=== PATIENT | female | born 1975 | race Caucasian/White ===

== ENCOUNTER 2016-09-02 11:14 | Emergency (ER) | payer MEDICAID, OTHER ==
--- NOTE | 2016-09-02 12:09 | UC ---
UC General HPI - HPI Summary HPI Summary: complaint ofnausea, vomiting that started approx 1.5 days ago diarrhea that started 1.5 days ago able to drink small amounts of water every times she tries to eat she has diarrhea- 2-3 episodes today vomited 2x today denies blood in stool no menses for 3 months d/t depo denies dysuria, denies abdominal pain but sometimes has a cramping feeling denies fever, sore throat , cough, congestion hasn't taken any medication for symptoms - History of Current Complaint Chief Complaint: UCGI Stated Complaint: NAUSEA, VOMITING Time Seen by Provider: 09/02/16 12:02 Hx Obtained From: Patient - Allergy/Home Medications Allergies/Adverse Reactions: Allergies Allergy/AdvReac Type Severity Reaction Status Date / Time No Known Allergies Allergy Verified 09/02/16 11:39 PMH/Surg Hx/FS Hx/Imm Hx Previously Healthy: Yes Endocrine History Of: Denies: Diabetes, Thyroid Disease Cardiovascular History Of: Reports: Cardiac Disorders - heart murmur Denies: Hypertension, Pacemaker/ICD Respiratory History Of: Denies: COPD, Asthma GI/ History Of: Denies: Gastroesophageal Reflux, Ulcer, Renal Disease Neurological History Of: Denies: CVA, Dementia, Seizures Other History Of: Negative For: Anticoagulant Therapy - Surgical History Surgical History: Yes Surgery Procedure, Year, and Place: LEEP procedure - Family History Known Family History: Positive: None Negative: Cardiac Disease, Hypertension, Diabetes - Social History Occupation: Employed Full-time Lives: With Family Alcohol Use: Occasionally Substance Use Type: None Smoking Status (MU): Light Every Day Tobacco Smoker Type: Cigarettes Amount Used/How Often: 1/2 pack per day Household Exposure Type: Cigarettes Cessation Counseling: Patient Advised to Stop - Immunization History Most Recent Influenza Vaccination: Not UTD Review of Systems Constitutional: Negative Skin: Negative Eyes: Negative ENT: Negative Respiratory: Negative Cardiovascular: Negative Gastrointestinal: Vomiting, Diarrhea Genitourinary: Negative Motor: Negative Neurovascular: Negative Musculoskeletal: Negative Neurological: Negative Psychological: Negative All Other Systems Reviewed And Are Negative: Yes Physical Exam Triage Information Reviewed: Yes Appearance: No Pain Distress, Well-Nourished Vital Signs: Initial Vital Signs Temp 98.9 F 09/02/16 11:40 Pulse 82 09/02/16 11:40 Resp 16 09/02/16 11:40 BP 149/98 09/02/16 11:40 Pulse Ox 100 09/02/16 11:40 Vital Signs Reviewed: Yes Eyes: Positive: Conjunctiva Clear ENT: Positive: Pharynx normal, TMs normal Neck: Positive: No Lymphadenopathy Respiratory: Positive: Lungs clear, Normal breath sounds, No respiratory distress Cardiovascular: Positive: RRR, No Murmur, Pulses Normal Abdomen Description: Positive: Nontender, No Organomegaly, Soft. Negative: CVA Tenderness (R), CVA Tenderness (L), Distended, Guarding Bowel Sounds: Positive: Hyperactive Musculoskeletal: Positive: No Edema Neurological: Positive: Alert Psychological Exam: Normal Skin Exam: Normal Course/Dx - Course Course Of Treatment: exam completed. blood pressure is elevated- followup with PCP. abdomen non tender on exam - will treat with zofran and increase fluids. discussed if her symptoms do not improve or she develops abdominal pain to proceed to the emergency room - Differential Dx - Multi-Symptom Differential Diagnoses: Other - gastroenteritis, abdmonial pain Provider Diagnoses: gastroenteritis Discharge - Discharge Plan Condition: Stable Disposition: HOME Prescriptions: Ondansetron TAB* [Zofran 4 MG Tab*] 4 mg PO Q6H PRN #8 tab PRN Reason: Nausea Patient Education Materials: Gastroenteritis (ED), Hypertension (ED) Referrals: Liset Sanders MD [Primary Care Provider] - Additional Instructions: Your blood pressure is elevated today please make an appointment with your primary care provider to have further evaluation of your blood pressure Start zofran as directed Increase fluids and rest Take acetaminophen for fever or pain Please review your discharge instructions. If your symptoms do not improve please call your primary care provider or return to urgent care
[2016-09-02 12:27] VITALS: BP 140/97
== END 2016-09-02 12:29 | disposition home or self-care (01) ==
LOC: UCCORT 11:14
DX: K52.9 Noninfective gastroenteritis and colitis, unspecified (principal); F17.210 Nicotine dependence, cigarettes, uncomplicated
CPT/HCPCS: 99212; G0463

== ENCOUNTER 2016-09-08 11:40 | Emergency (ER) | payer MEDICAID ==
[2016-09-08 12:06] VITALS: BP 145/95
--- NOTE | 2016-09-08 12:53 | UC ---
Throat Pain/Nasal Omari HPI - HPI Summary HPI Summary: LEFT EAR PAIN, NASAL CONGESTION, SORE THROAT FOR FOUR DAYS. HEAVY SMOKER, 1PPD. WORKS IN [employer]. - History of Current Complaint Chief Complaint: UCEar Stated Complaint: EARS/SORE THROAT/DIZZY Time Seen by Provider: 09/08/16 12:15 Hx Obtained From: Patient Hx Last Menstrual Period: depo shot Onset/Duration: Gradual Onset, Lasting Weeks, Still Present Severity: Moderate Pain Intensity: 8 Pain Scale Used: 0-10 Numeric Associated Signs & Symptoms: Positive: Hoarseness, Sinus Discomfort, Nasal Discharge - Epiglottits Risk Factors Epiglottis Risk Factors: Negative - Allergies/Home Medications Allergies/Adverse Reactions: Allergies Allergy/AdvReac Type Severity Reaction Status Date / Time No Known Allergies Allergy Verified 09/08/16 12:06 PMH/Surg Hx/FS Hx/Imm Hx Previously Healthy: Yes Endocrine History Of: Denies: Diabetes, Thyroid Disease Cardiovascular History Of: Reports: Cardiac Disorders - heart murmur Denies: Hypertension, Pacemaker/ICD Respiratory History Of: Denies: COPD, Asthma GI/ History Of: Denies: Gastroesophageal Reflux, Ulcer, Renal Disease Neurological History Of: Denies: CVA, Dementia, Seizures Other History Of: Negative For: Anticoagulant Therapy - Surgical History Surgical History: Yes Surgery Procedure, Year, and Place: LEEP procedure - Family History Known Family History: Positive: None Negative: Cardiac Disease, Hypertension, Diabetes - Social History Occupation: Employed Full-time Lives: With Family Alcohol Use: Occasionally Substance Use Type: None Smoking Status (MU): Light Every Day Tobacco Smoker Type: Cigarettes Amount Used/How Often: 1/2 pack per day Household Exposure Type: Cigarettes Cessation Counseling: Patient Advised to Stop - Immunization History Most Recent Influenza Vaccination: Not UTD Most Recent Tetanus Shot: unknown Review of Systems Constitutional: Negative Skin: Negative Eyes: Negative ENT: Sore Throat, Ear Ache, Nasal Discharge Respiratory: Cough Cardiovascular: Negative Gastrointestinal: Negative Genitourinary: Negative Motor: Negative Neurovascular: Negative Musculoskeletal: Negative Neurological: Negative Psychological: Negative All Other Systems Reviewed And Are Negative: Yes Physical Exam Triage Information Reviewed: Yes Appearance: No Pain Distress, Well-Nourished, Ill-Appearing - MILD Vital Signs: Initial Vital Signs Temp 98.2 F 09/08/16 12:03 Pulse 83 03/18/17 12:03 Resp 14 09/08/16 12:03 BP 145/95 09/08/16 12:03 Pulse Ox 100 09/08/16 12:03 Vital Signs Reviewed: Yes Eye Exam: Normal Eyes: Positive: Conjunctiva Clear ENT: Positive: Hearing grossly normal, Pharyngeal erythema, Nasal congestion, TM bulging, TM dull Dental Exam: Normal Neck exam: Normal Neck: Positive: Supple, Nontender, No Lymphadenopathy Respiratory Exam: Normal Respiratory: Positive: Chest non-tender, Lungs clear, Normal breath sounds, No respiratory distress, No accessory muscle use Cardiovascular Exam: Normal Cardiovascular: Positive: RRR, No Murmur, Pulses Normal Abdominal Exam: Normal Abdomen Description: Positive: Nontender, No Organomegaly Musculoskeletal Exam: Normal Musculoskeletal: Positive: Strength Intact, ROM Intact Neurological Exam: Normal Psychological Exam: Normal Skin Exam: Normal Throat Pain/Nasal Course/Dx - Differential Dx/Diagnosis Differential Diagnosis/HQI/PQRI: Pharyngitis, Sinusitis, URI Provider Diagnoses: OTITIS MEDIA. SINUSITIS. TONSILLITIS. TOBACCO ABUSE Discharge - Discharge Plan Condition: Stable Disposition: HOME Prescriptions: Amoxicillin/Clavulanate TAB* [Augmentin TAB 875*] 875 mg PO BID #20 tab Patient Education Materials: How to Stop Smoking (ED), Otitis Media (ED), Tonsillitis (ED) Forms: *Work Release Referrals: Liset Sanders MD [Primary Care Provider] -
== END 2016-09-08 12:40 | disposition home or self-care (01) ==
LOC: UCCORT 11:40
DX: H66.92 Otitis media, unspecified, left ear (principal); J32.9 Chronic sinusitis, unspecified; J03.90 Acute tonsillitis, unspecified; R01.1 Cardiac murmur, unspecified; R03.0 Elevated blood-pressure reading, without diagnosis of hypertension; F17.210 Nicotine dependence, cigarettes, uncomplicated
CPT/HCPCS: 99212; G0463

== ENCOUNTER 2016-09-11 11:25 | Inpatient (IN) | payer MEDICAID ==
[2016-09-11] MEDS ORDERED: Ondansetron INJ* 2 MG/ML VIAL IV ONE (12:34)
[2016-09-11] MEDS: NS 0.9% 1000 ML* 2,000 ML IV ONE ×2 (13:21→14:10)
[2016-09-11 13:43] LABS: Hematocrit 46 % (35-47); Hemoglobin 15.5 g/dl (12.0-16.0); Mean Corpuscular HGB Conc 34 g/dl (31-36); Mean Corpuscular Hemoglobin 33 pg (27-31); Mean Corpuscular Volume 98 fL (80-97); Mean Platelet Volume 10 um3 (7.4-10.4); Red Blood Count 4.73 10^6/ul (4.0-5.4); Red Cell Distribution Width 13 % (10.5-15); White Blood Count 11.9 10^3/ul (3.5-10.8)
[2016-09-11 13:56] LABS: Urine Bacteria Absent (Absent); Urine Bilirubin Negative (Negative); Urine Glucose Negative (Negative); Urine Nitrite Negative (Negative)
[2016-09-11 14:05] LABS: ALT 22 U/L (7-52); AST 23 U/L (13-39); Albumin 4.8 g/dL (3.2-5.2); Alkaline Phosphatase 90 U/L (34-104); Anion Gap 6 mmol/L (2-11); BUN/Creatinine Ratio 11.7 (8-20); Blood Urea Nitrogen 9 mg/dL (6-24); CO2 Carbon Dioxide 26 mmol/L (22-32); Calcium 10.4 mg/dL (8.6-10.3); Chloride 98 mmol/L (101-111); Creatine Kinase 83 U/L (10-223); EGFR African American 106.8 (>60); Globulin 3.9 g/dL (2-4); Glucose 96 mg/dL (70-100); Lipase 12 U/L (11.0-82.0); Potassium 3.8 mmol/L (3.5-5.0); Sodium 130 mmol/L (133-145); Total Protein 8.7 g/dL (6.4-8.9)
[2016-09-11] MEDS ORDERED: Iohexol 300* (CONTRAST) 10 ML SDV IV ONE (15:19)
--- NOTE | 2016-09-11 15:51 | RAD ---
Indication: Diffuse abdominal pain, nausea and vomiting. Contrast: Administered 91.3 ml of Contrast Omnipaque 300 mg/ml CT of the abdomen and pelvis was performed after oral and IV contrast administration. Lung bases demonstrate no pleural fluid, nodules or masses. Heart is of normal size without evidence of pericardial effusion. Liver is normal in size. No focal lesions or intrahepatic ductal dilatation is noted. Gallbladder demonstrates no calcified gallstones. No pericholecystic fluid or wall thickening is identified. The spleen is normal in size. The common duct is not dilated. The pancreas demonstrates no mass or pancreatic duct dilatation. No adrenal masses are noted. The kidneys demonstrate symmetric nephrograms without evidence of hydronephrosis. Low density lesion upper pole left kidney does not measure fluid density. This was not present on prior noncontrast CT of 2007. Correlation with ultrasound and/or pre and postcontrast CT of the kidneys is suggested. No retroperitoneal lymphadenopathy is noted. Aorta and inferior vena cava are unremarkable. There is circumferential submucosal edema in the gastric antrum. Findings are suspicious for antral gastritis. Clinical correlation is suggested. CT of the pelvis demonstrates contrast in the colon. The appendix is visualized and is normal in caliber. The uterus and ovaries are unremarkable. No free fluid is identified in the pelvis. The bony structures are grossly unremarkable. IMPRESSION: THERE IS SUBMUCOSAL EDEMA IN THE GASTRIC ANTRUM WHICH IS CIRCUMFERENTIAL. CLINICAL CORRELATION IS SUGGESTED AND FURTHER EVALUATION MAY BE INDICATED. THERE IS A LOW-DENSITY 9 MM LESION ARISING FROM THE UPPER POLE OF THE LEFT KIDNEY. THIS DOES NOT MEASURE FLUID DENSITY AND WAS NOT PRESENT ON PRIOR CT DATED APRIL 02, 2008. FURTHER EVALUATION WITH ULTRASOUND OF THE KIDNEY AND OR PRE AND POSTCONTRAST CT OF THE KIDNEYS IS SUGGESTED.
[2016-09-11] MEDS ORDERED: Morphine INJ* 4 MG/ML 1 ML SYRINGE IV ONE (16:22)
[2016-09-11] MEDS ORDERED: Pantoprazole IV* 40 MG IV ONE (16:22)
--- NOTE | 2016-09-11 17:51 | ED ---
Ignacio Carrion Billy, scribed for Carlos Eduardo Moya MD on 09/11/16 at 1312 . Abdominal Pain/Female - HPI Summary HPI Summary: Patient is a 41 year-old female coming to [facility] presenting with constant diffuse abdominal pain since late last night. She reports pain severity 10/10. She also reports increased chills, nausea, vomiting, diarrhea, urinary frequency , and bilateral flank pain. Denies any fever. She has had some vaginal spotting but denies any vaginal discharge. Denies any risk of STD/STI. Patient took Depo- Provera in April 2016 and has had no periods since. She felt normal yesterday but progressively felt the onset of symptoms after dinner. Denies PSHx of abdominal surgery. - History of Current Complaint Chief Complaint: EDAbdPain Stated Complaint: ABD PAIN Time Seen by Provider: 09/11/16 13:03 Hx Obtained From: Patient Hx Last Menstrual Period: depo shot Onset/Duration: Gradual Onset, Lasting Hours, Still Present Timing: Constant Severity Initially: Moderate Severity Currently: Moderate Pain Intensity: 10 Pain Scale Used: 0-10 Numeric Location: Diffuse, Flank Radiates: No Aggravating Factor(s): Nothing Alleviating Factor(s): Nothing Associated Signs and Symptoms: Positive: Urinary Symptoms - frequency, Decreased Appetite, Vaginal Bleeding - spotting, Nausea, Vomiting, Diarrhea, Other: - chills. Negative: Fever, Vaginal Discharge Allergies/Adverse Reactions: Allergies Allergy/AdvReac Type Severity Reaction Status Date / Time No Known Allergies Allergy Verified 09/08/16 12:06 PMH/Surg Hx/FS Hx/Imm Hx Endocrine/Hematology History: Denies: Hx Anticoagulant Therapy, Hx Diabetes, Hx Thyroid Disease Cardiovascular History: Denies: Hx Hypertension, Hx Pacemaker/ICD Respiratory History: Denies: Hx Asthma, Hx Chronic Obstructive Pulmonary Disease (COPD) GI History: Denies: Hx Ulcer History: Denies: Hx Renal Disease Neurological History: Denies: Hx Dementia, Hx Seizures Psychiatric History: Denies: Hx Substance Abuse - Surgical History Surgery Procedure, Year, and Place: LEEP procedure Infectious Disease History: No Infectious Disease History: Denies: Hx Hepatitis, Hx Human Immunodeficiency Virus (HIV), Traveled Outside the [place] in Last 30 Days - Family History Known Family History: Negative: Cardiac Disease, Hypertension, Diabetes - Social History Alcohol Use: Occasionally Substance Use Type: Reports: None Smoking Status (MU): Light Every Day Tobacco Smoker Type: Cigarettes Amount Used/How Often: 1/2 pack per day Review of Systems Positive: Chills. Negative: Fever Positive: Abdominal Pain, Vomiting, Diarrhea, Nausea Positive: frequency, flank pain, other - vaginal spotting. Negative: discharge All Other Systems Reviewed And Are Negative: Yes Physical Exam Triage Information Reviewed: Yes Vital Signs On Initial Exam: Initial Vitals Temp Pulse Resp BP Pulse Ox 97.5 F 82 18 177/103 99 09/11/16 11:26 09/11/16 11:26 09/11/16 11:26 09/11/16 11:26 09/11/16 11:26 Vital Signs Reviewed: Yes Appearance: Positive: Well-Appearing, Pain Distress - mild Skin: Positive: Warm, Skin Color Reflects Adequate Perfusion, Dry Head/Face: Positive: Normal Head/Face Inspection Eyes: Positive: EOMI, REG ENT: Positive: Normal ENT inspection Neck: Positive: Supple, Nontender Respiratory/Lung Sounds: Positive: Clear to Auscultation, Breath Sounds Present Cardiovascular: Positive: RRR Abdomen Description: Positive: Soft, Other: - diffusely tender Bowel Sounds: Positive: Hypoactive Musculoskeletal: Positive: Normal, Strength/ROM Intact Neurological: Positive: Normal, Sensory/Motor Intact, Alert, Oriented to Person Place, Time Psychiatric: Positive: Affect/Mood Appropriate Diagnostics - Vital Signs Vital Signs Temp Pulse Resp BP Pulse Ox 09/11/16 11:26 97.5 F 82 18 177/103 99 - Laboratory Lab Results: Lab Results 09/11/16 09/11/16 09/11/16 Range/Units 13:20 13:20 13:20 WBC 11.9 H (3.5-10.8) 10^3/ul RBC 4.73 (4.0-5.4) 10^6/ul Hgb 15.5 (12.0-16.0) g/dl Hct 46 (35-47) % MCV 98 H (80-97) fL MCH 33 H (27-31) pg MCHC 34 (31-36) g/dl RDW 13 (10.5-15) % Plt Count 219 (150-450) 10^3/ul MPV 10 (7.4-10.4) um3 Neut % (Auto) 77.5 (38-83) % Lymph % (Auto) 14.5 L (25-47) % [place] % (Auto) 6.9 (1-9) % Eos % (Auto) 0.7 (0-6) % Baso % (Auto) 0.4 (0-2) % Absolute Neuts (auto) 9.2 H (1.5-7.7) 10^3/ul Absolute Lymphs (auto) 1.7 (1.0-4.8) 10^3/ul Absolute Monos (auto) 0.8 (0-0.8) 10^3/ul Absolute Eos (auto) 0.1 (0-0.6) 10^3/ul Absolute Basos (auto) 0 (0-0.2) 10^3/ul Absolute Nucleated RBC 0 10^3/ul Nucleated RBC % 0 INR (Anticoag Therapy) 0.87 L (0.89-1.11) APTT 25.3 L (26.0-36.3) seconds Sodium (133-145) mmol/L Potassium (3.5-5.0) mmol/L Chloride (101-111) mmol/L Carbon Dioxide (22-32) mmol/L Anion Gap (2-11) mmol/L BUN (6-24) mg/dL Creatinine (0.51-0.95) mg/dL Est GFR ( Amer) (>60) Est GFR (Non-Af Amer) (>60) BUN/Creatinine Ratio (8-20) Glucose (70-100) mg/dL Lactic Acid (0.5-2.0) mmol/L Calcium (8.6-10.3) mg/dL Total Bilirubin (0.2-1.0) mg/dL AST (13-39) U/L ALT (7-52) U/L Alkaline Phosphatase (34-104) U/L Total Creatine Kinase (10-223) U/L CK-MB (CK-2) (0.6-6.3) ng/mL Troponin I (<0.04) ng/mL C-Reactive Protein (< 5.00) mg/L Total Protein (6.4-8.9) g/dL Albumin (3.2-5.2) g/dL Globulin (2-4) g/dL Albumin/Globulin Ratio (1-3) Lipase (11.0-82.0) U/L Beta HCG, Quant mIU/mL Urine Color Yellow Urine Appearance Clear Urine pH 5.0 (5-9) Ur Specific [place] 1.017 (1.010-1.030) Urine Protein 1+(30 mg/dl) H (Negative) Urine Ketones Negative (Negative) Urine Blood 2+ H (Negative) Urine Nitrate Negative (Negative) Urine Bilirubin Negative (Negative) Urine Urobilinogen Negative (Negative) Ur Leukocyte Esterase Negative (Negative) Urine WBC (Auto) Trace(0-5/hpf) (Absent) Urine RBC (Auto) 1+(3-5/hpf) H (Absent) Ur Squamous Epith Cells Present H (Absent) Urine Bacteria Absent (Absent) Urine Glucose Negative (Negative) 09/11/16 09/11/16 Range/Units 13:20 13:20 WBC (3.5-10.8) 10^3/ul RBC (4.0-5.4) 10^6/ul Hgb (12.0-16.0) g/dl Hct (35-47) % MCV (80-97) fL MCH (27-31) pg MCHC (31-36) g/dl RDW (10.5-15) % Plt Count (150-450) 10^3/ul MPV (7.4-10.4) um3 Neut % (Auto) (38-83) % Lymph % (Auto) (25-47) % [place] % (Auto) (1-9) % Eos % (Auto) (0-6) % Baso % (Auto) (0-2) % Absolute Neuts (auto) (1.5-7.7) 10^3/ul Absolute Lymphs (auto) (1.0-4.8) 10^3/ul Absolute Monos (auto) (0-0.8) 10^3/ul Absolute Eos (auto) (0-0.6) 10^3/ul Absolute Basos (auto) (0-0.2) 10^3/ul Absolute Nucleated RBC 10^3/ul Nucleated RBC % INR (Anticoag Therapy) (0.89-1.11) APTT (26.0-36.3) seconds Sodium 130 L (133-145) mmol/L Potassium 3.8 (3.5-5.0) mmol/L Chloride 98 L (101-111) mmol/L Carbon Dioxide 26 (22-32) mmol/L Anion Gap 6 (2-11) mmol/L BUN 9 (6-24) mg/dL Creatinine 0.77 (0.51-0.95) mg/dL Est GFR ( Amer) 106.8 (>60) Est GFR (Non-Af Amer) 83.0 (>60) BUN/Creatinine Ratio 11.7 (8-20) Glucose 96 (70-100) mg/dL Lactic Acid 0.7 (0.5-2.0) mmol/L Calcium 10.4 H (8.6-10.3) mg/dL Total Bilirubin 1.00 (0.2-1.0) mg/dL AST 23 (13-39) U/L ALT 22 (7-52) U/L Alkaline Phosphatase 90 (34-104) U/L Total Creatine Kinase 83 (10-223) U/L CK-MB (CK-2) 0.8 (0.6-6.3) ng/mL Troponin I 0.00 (<0.04) ng/mL C-Reactive Protein 1.00 (< 5.00) mg/L Total Protein 8.7 (6.4-8.9) g/dL Albumin 4.8 (3.2-5.2) g/dL Globulin 3.9 (2-4) g/dL Albumin/Globulin Ratio 1.2 (1-3) Lipase 12 (11.0-82.0) U/L Beta HCG, Quant < 0.60 mIU/mL Urine Color Urine Appearance Urine pH (5-9) Ur Specific [place] (1.010-1.030) Urine Protein (Negative) Urine Ketones (Negative) Urine Blood (Negative) Urine Nitrate (Negative) Urine Bilirubin (Negative) Urine Urobilinogen (Negative) Ur Leukocyte Esterase (Negative) Urine WBC (Auto) (Absent) Urine RBC (Auto) (Absent) Ur Squamous Epith Cells (Absent) Urine Bacteria (Absent) Urine Glucose (Negative) Result Diagrams: 09/11/16 13:20 09/11/16 13:20 Lab Statement: Any lab studies that have been ordered have been reviewed, and results considered in the medical decision making process. - CT abd/pel w CT Interpretation Completed By: Radiologist - THERE IS SUBMUCOSAL EDEMA IN THE GASTRIC ANTRUM WHICH IS CIRCUMFERENTIAL. CLINICAL CORRELATION IS SUGGESTED AND FURTHER EVALUATION MAY BE INDICATED. THERE IS A LOW-DENSITY 9 MM LESION ARISING FROM THE UPPER POLE OF THE LEFT KIDNEY. THIS DOES NOT MEASURE FLUID DENSITY AND WAS NOT PRESENT ON PRIOR CT DATED APRIL 02, 2008. FURTHER EVALUATION WITH ULTRASOUND OF THE KIDNEY AND OR PRE AND POSTCONTRAST CT OF THE KIDNEYS IS SUGGESTED. Re-Evaluation - Re-Evaluation First Eval Re-Evaluation Time: 16:10 Change: Improved Comment: Labs and imaging reviewed. Abdominal Pain Fem Course/Dx - Course Course Of Treatment: DISCUSSED WITH DR MENDOZA GI. PATIENT'S PAIN CONTINUES. ADMIT HOSPITALIST STABLE. - Diagnoses Provider Diagnoses: Abdominal pain - Provider Notifications Discussed Care Of Patient With: Dr. Mendoza (GI) @ 1630: recommends follow up with endoscopy. Dr. Leon (hospitalist) @ 1740: accepts admission. Discharge - Discharge Plan Condition: Stable Disposition: ADMITTED TO [facility] Referrals: Liset Sanders MD [Primary Care Provider] - The documentation as recorded by the Ignacio griffith Billy accurately reflects the service I personally performed and the decisions made by me, Carlos Eduardo Moya MD.
[2016-09-11] MEDS: Pantoprazole IV* 80 MG in NS 0.9% 250 ML* 250 ML IVPB SCH (18:53)
[2016-09-11] MEDS ORDERED: Ondansetron INJ* 2 MG/ML VIAL IV PRN (18:54)
[2016-09-11] MEDS: Morphine INJ* 2 MG/ML 1 ML SYRINGE IV PRN ×2 (20:15→23:22)
[2016-09-11] MEDS: NS 0.9% 1000 ML* 1,000 ML IV SCH (20:15)
[2016-09-11 20:20] LABS: Hematocrit 39 % (35-47); Hemoglobin 13.1 g/dl (12.0-16.0)
--- NOTE | 2016-09-12 00:36 | HP ---
ADMISSION HISTORY AND PHYSICAL: DATE OF ADMISSION: 09/11/16 CHIEF COMPLAINT: Abdominal pain. HISTORY OF PRESENT ILLNESS: Ms. Julien is a 41-year-old woman with a little past medical history, who reports that she has had some epigastric discomfort, nausea, and diarrhea for approximately 2 weeks. The patient presented to the [facility] on 09/02/16 for these complaints and was told she had a viral gastroenteritis. She has had some postprandial epigastric pain, but mainly has had nausea and diarrhea off and on for the 2 weeks. The night prior to admission, she tried to eat scalloped potatoes and ham, had some nausea and anorexia. Overnight, she developed epigastric pain that radiated in a band left and right around to the spine and rated 10/10 pain. She has had vomiting intermittently over the past few weeks. Because of the above complaints, the patient came to the emergency department for evaluation today. The patient was also seen in the [facility] on 09/08/16 regarding sore throat and left ear pain. She is currently on Augmentin twice a day for these complaints. PAST MEDICAL HISTORY: Hypertension, untreated. PAST SURGICAL HISTORY: LEEP procedure due to abnormal Pap smear. MEDICATIONS: On admission: Amoxicillin/clavulanic acid 875 mg p.o. b.i.d. ALLERGIES: None. FAMILY HISTORY: Notable for brother with hypertension and anxiety and father who of cancer, unknown type. SOCIAL HISTORY: She works in a gas station. She is . She has 2 children. She smokes about 5 cigarettes per day, drinks alcohol 2 to 4 drinks per day after work. No recreational drugs. REVIEW OF SYSTEMS: The patient has had no fevers, but had some chills and anorexia. The patient denies any weight loss. The patient denies any chest pain or palpitations. The patient denies any cough, hemoptysis, or shortness of breath. She has a diarrhea. No blood in the stool. She does report that she has taken NSAIDs 400 mg of ibuprofen b.i.d. in the last 2 days as needed for her ear pain and throat pain. Remainder of her 14-point review of systems is negative other than mentioned in the HPI. PHYSICAL EXAMINATION GENERAL: She is a well-appearing middle-aged woman, in no acute distress. VITAL SIGNS: Temperature is 37.1, pulse 76, respirations 16, blood pressure is 146/67, and O2 sat is 99%. HEENT: Head is normocephalic and atraumatic. Sclerae anicteric. Pupils are equal, round, and reactive to light and accommodation. Oropharynx is moist. No lesions. NECK: No JVD. No carotid bruit. No thyromegaly. LUNGS: Clear to auscultation and percussion bilaterally. HEART: Regular rate and rhythm without murmurs or gallops. ABDOMEN: Soft, tender in the epigastric and right upper quadrant region. There is some guarding in the epigastric area. No masses. No hepatosplenomegaly. EXTREMITIES: No peripheral edema. Dorsalis pedis pulses 2+ bilaterally. SKIN: Notable for erythematous macular and generalized blanching rash on the face consistent with rosacea. NEUROLOGIC: Cranial nerves II through XII are intact. Motor strength is 5/5 throughout. Deep tendon reflexes are symmetric. DIAGNOSTIC STUDIES/LAB DATA: Sodium 130, potassium 3.8, chloride 98, bicarb 26 , BUN 9, creatinine 0.77, glucose 96, and calcium 10.4. Albumin 4.6, AST 23, ALT 22, and bilirubin 1.0. Troponin 0.00. Lipase is 12. HCG is less than 0.6. Lactic acid 0.7. White count 11.9, hemoglobin 15.5, hematocrit 46%, and platelets 219. Pro-time 0.[address] of the abdomen and pelvis shows a generalized submucosal edema in the gastric body, no perforation. There is no gallbladder thickening or gallstone. She does have a 0.9 cm left kidney lesion that likely needs followup. ASSESSMENT AND PLAN: A 41-year-old woman presenting with epigastric pain. Differential would include gastritis, peptic ulcer, and gallbladder colic. The patient will be admitted to observation. We will treat her gastritis and ulcer with Protonix drip and follow serial hemoglobin and hematocrit to ensure that she is not having a GI bleed. The patient will be seen by Gastroenterology tomorrow for consultation. I discussed the case with Dr. Seymour and he will make sure someone sees her tomorrow for possible endoscopy. For her left kidney lesion, she should have an outpatient repeat CT in 3 to 6 months to follow up with lesion in a smoker. For fluid and electrolytes, she will be n.p.o. except some clear liquids and risk of dehydration given her vomiting, so she will have normal saline intravenously while she is awaiting procedure tomorrow. For tobacco use, I discussed cessation. For DVT prophylaxis, she can have early ambulation. Code status is full. Health care proxy is her son. CC: Dr. Liset Sanders in [place] * [id number]/CPS #: [id number] MTDD
[2016-09-12] MEDS: NS 0.9% 1000 ML* 1,000 ML IV SCH ×3 (02:51→18:56)
[2016-09-12] MEDS: Morphine INJ* 2 MG/ML 1 ML SYRINGE IV PRN ×4 (03:44→20:55)
[2016-09-12] MEDS: Pantoprazole IV* 80 MG in NS 0.9% 250 ML* 250 ML IVPB SCH ×2 (05:19→14:46)
[2016-09-12 07:25] LABS: Hematocrit 36 % (35-47); Hemoglobin 11.8 g/dl (12.0-16.0); Mean Corpuscular HGB Conc 32 g/dl (31-36); Mean Corpuscular Hemoglobin 33 pg (27-31); Mean Corpuscular Volume 102 fL (80-97); Mean Platelet Volume 10 um3 (7.4-10.4); Red Blood Count 3.58 10^6/ul (4.0-5.4); Red Cell Distribution Width 13 % (10.5-15); White Blood Count 7.6 10^3/ul (3.5-10.8)
[2016-09-12 07:32] LABS: BUN/Creatinine Ratio 5.4 (8-20); Calcium 8.4 mg/dL (8.6-10.3); EGFR African American 111.8 (>60); EGFR Non-African American 86.9 (>60); Potassium 3.7 mmol/L (3.5-5.0)
--- NOTE | 2016-09-12 09:54 | RAD ---
HISTORY: Gastric ulcer COMPARISONS: CT dated September 11, 2016, ultrasound dated May 27, 2012 TECHNIQUE: Multiple transverse and longitudinal ultrasound images were obtained of the right upper quadrant of the abdomen using grayscale and color Doppler imaging. FINDINGS: LIVER: The liver is normal in shape, size, contour, and echogenicity. There are no focal parenchymal masses. There is normal hepatopedal flow of the portal vein on Doppler imaging. BILIARY TREE: There is no intrahepatic or extrahepatic biliary dilatation. The common duct measures 0.4 cm. GALLBLADDER: The gallbladder is well-visualized. There is no cholelithiasis, gallbladder wall thickening, pericholecystic fluid, or sonographic Reed sign. PANCREAS: The head of the pancreas is unremarkable. The tail of the pancreas is not well visualized secondary to overlying bowel gas. RIGHT KIDNEY: The right kidney is normal in shape, size, contour, and echogenicity. There is no hydronephrosis or nephrolithiasis. The right kidney measures 10.4 x 3.8 x 4.5 cm. AORTA AND IVC: The aorta and IVC are unremarkable. FLUID: There are no pleural effusions. There is no free fluid within the hepatorenal recess. OTHER FINDINGS: None. IMPRESSION: NO ACUTE SONOGRAPHIC PATHOLOGY OF THE VISUALIZED PORTION OF THE ABDOMEN
--- NOTE | 2016-09-12 11:55 | CONS ---
CONSULTATION REPORT: DATE OF CONSULT: 09/12/16 REASON FOR CONSULTATION: Epigastric pain. HISTORY OF PRESENT ILLNESS: Ms. Julien is a healthy 41-year-old woman who presents with about a 2-day history of intense gastric pain with radiation into the back associated with a background history of diarrhea and anorexia and nausea. The patient states that approximately 2 weeks ago, she developed nausea , anorexia, and diarrhea. She went to Urgent Care on September 02 and was thought to have a viral gastroenteritis. Due to her nausea, she was prescribed Zofran but due to insurance issues, that was not filled. Her symptoms stayed about the same over that period of time. However, over the weekend, she developed left ear pain and went back to Urgent Care and was diagnosed with upper respiratory infection and prescribed Augmentin. About 2 days ago, she developed very intense epigastric pain which is constant. She has not been able to eat other than having liquids. There has been a sense of nausea. She has had no fevers or chills. She does note that she took 4 ibuprofen for her ear pain prior to the onset of these symptoms. She presented to the emergency room with laboratory data demonstrating a normal lipase, liver panel, and white count. She had a CT scan of the abdomen which did show some submucosal edema of the gastric antrum suggestive of gastritis, but no other lesion. She was held overnight in the hospital, given morphine, and clear liquids and IV Protonix. She continues to have these symptoms. Prior to this acute onset, she has had no digestive history. PAST MEDICAL HISTORY: Hypertension, but has not been treated. SURGICAL HISTORY: LEEP procedure in the past. FAMILY HISTORY: Negative for GI disease. REVIEW OF SYSTEMS: She has had no GI bleeding, odynophagia. She has no background history of heartburn or weight loss. She denies any jaundice or history of liver disease. PHYSICAL EXAMINATION: She is a young woman describing pain, but in no acute distress. She is anicteric. Temperature is 98 degrees, blood pressure is 135/ 78, heart rate is 67 and regular. Lungs are clear. Cardiac exam reveals a regular rhythm without murmur. Abdomen is soft. There is perhaps some mild tenderness in the epigastrium and right upper quadrant without organomegaly. Bowel sounds are hypoactive but present. DIAGNOSTIC STUDIES/LAB DATA: White count of 7.6, hemoglobin of 11.8, normal liver panel, lipase of 12. IMPRESSION: A 41-year-old woman presenting with 2 days of epigastric pain with some radiation in the back, with a prodrome that goes on for 2 weeks with diarrhea and anorexia. CT scan shows the question of gastritis, and for that reason, an upper endoscopy will be pursued. I am also willing to order a gallbladder ultrasound. Further recommendations will be based upon the findings of those studies. This was explained to the patient. [id number]/[facility] #: [id number] [facility]
[2016-09-12] MEDS ORDERED: fentaNYL* 50 MCG/ML 2 ML VIAL (100 MCG VIAL) ONE (15:57)
[2016-09-12] MEDS ORDERED: Midazolam* 1 MG/ML 10 ML VIAL (10 MG) ONE (15:58)
--- NOTE | 2016-09-12 17:25 | PN ---
Subjective Date of Service: 09/12/16 Interval History: Patient seen and examined at bedside. She is resting in bed and reports feeling better than the past 2 weeks. She reports "lots of gas." She still has abdominal pain that is helped by the pain medication. No nausea or diarrhea at this time. Denies fever/chills, CP, SOB. Plan for endoscopy today. Family History: Unchanged from Admission Social History: Unchanged from Admission Past Medical History: Unchanged from Admission Objective Active Medications: Sodium Chloride (Ns 0.9% 1000 Ml*) 1,000 mls @ 150 mls/hr IV PER RATE [facility] Last Admin: 09/12/16 09:41 Dose: 150 mls/hr Pantoprazole Sodium 80 mg/ (Sodium Chloride) 250 mls @ 25 mls/hr IVPB Q10H [facility] Last Admin: 09/12/16 14:46 Dose: 25 mls/hr Morphine Sulfate (Morphine Inj (Syringe)*) 4 mg IV Q3H PRN PRN Reason: PAIN Last Admin: 09/12/16 10:53 Dose: 4 mg Ondansetron HCl (Zofran Inj*) 4 mg IV Q6H PRN PRN Reason: NAUSEA Vital Signs 09/11/16 09/11/16 09/11/16 18:21 19:15 19:22 Temperature 98.7 F 97.8 F 97.8 F Pulse Rate 76 70 70 Respiratory 16 16 16 Rate Blood Pressure 146/67 138/86 138/86 (mmHg) O2 Sat by Pulse 99 99 99 Oximetry 09/11/16 09/11/16 09/11/16 19:33 20:15 20:35 Temperature Pulse Rate Respiratory 17 17 16 Rate Blood Pressure (mmHg) O2 Sat by Pulse Oximetry 09/11/16 09/11/16 09/11/16 21:15 23:22 23:43 Temperature 97.8 F Pulse Rate 80 Respiratory 16 16 16 Rate Blood Pressure 142/79 (mmHg) O2 Sat by Pulse 98 Oximetry 09/12/16 09/12/16 09/12/16 00:22 03:44 04:44 Temperature 97.7 F Pulse Rate 73 Respiratory 16 16 16 Rate Blood Pressure 147/85 (mmHg) O2 Sat by Pulse 99 Oximetry 09/12/16 09/12/16 09/12/16 07:23 07:50 08:00 Temperature 98.0 F Pulse Rate 67 Respiratory 16 18 16 Rate Blood Pressure 135/78 (mmHg) O2 Sat by Pulse 97 Oximetry 09/12/16 09/12/16 09/12/16 08:50 10:53 11:31 Temperature 97.7 F Pulse Rate 67 Respiratory 18 18 16 Rate Blood Pressure 141/75 (mmHg) O2 Sat by Pulse 97 Oximetry 09/12/16 09/12/16 09/12/16 11:53 17:11 17:17 Temperature 97.8 F 97.8 F Pulse Rate 69 69 Respiratory 18 14 14 Rate Blood Pressure 136/85 136/85 (mmHg) O2 Sat by Pulse 100 98 Oximetry Appearance: Female patient, lying in bed, in NAD Eyes: PERRLA Ears/Nose/Mouth/Throat: Clear Oropharnyx, Mucous Membranes Moist Neck: NL Appearance and Movements; NL JVP Respiratory: Symmetrical Chest Expansion and Respiratory Effort, Clear to Auscultation Cardiovascular: NL Sounds; No Murmurs; No JVD, RRR Abdominal: - - BS x 4, positive flatus, tenderness to epigastrum and RUQ and mid abdomen Extremities: No Edema Skin: No Rash or Ulcers Neurological: Alert and Oriented x 3 Lines/Tubes/Other Access: Clean, Dry and Intact Peripheral IV Result Diagrams: 09/12/16 06:52 09/12/16 06:52 Additional Lab and Data: Lab Results 09/11/16 09/11/16 09/11/16 Range/Units 13:20 13:20 13:20 WBC 11.9 H (3.5-10.8) 10^3/ul RBC 4.73 (4.0-5.4) 10^6/ul Hgb 15.5 (12.0-16.0) g/dl Hct 46 (35-47) % MCV 98 H (80-97) fL MCH 33 H (27-31) pg MCHC 34 (31-36) g/dl RDW 13 (10.5-15) % Plt Count 219 (150-450) 10^3/ul MPV 10 (7.4-10.4) um3 Neut % (Auto) 77.5 (38-83) % Lymph % (Auto) 14.5 L (25-47) % [place] % (Auto) 6.9 (1-9) % Eos % (Auto) 0.7 (0-6) % Baso % (Auto) 0.4 (0-2) % Absolute Neuts (auto) 9.2 H (1.5-7.7) 10^3/ul Absolute Lymphs (auto) 1.7 (1.0-4.8) 10^3/ul Absolute Monos (auto) 0.8 (0-0.8) 10^3/ul Absolute Eos (auto) 0.1 (0-0.6) 10^3/ul Absolute Basos (auto) 0 (0-0.2) 10^3/ul Absolute Nucleated RBC 0 10^3/ul Nucleated RBC % 0 INR (Anticoag Therapy) 0.87 L (0.89-1.11) APTT 25.3 L (26.0-36.3) seconds Sodium (133-145) mmol/L Potassium (3.5-5.0) mmol/L Chloride (101-111) mmol/L Carbon Dioxide (22-32) mmol/L Anion Gap (2-11) mmol/L BUN (6-24) mg/dL Creatinine (0.51-0.95) mg/dL Est GFR ( Amer) (>60) Est GFR (Non-Af Amer) (>60) BUN/Creatinine Ratio (8-20) Glucose (70-100) mg/dL Lactic Acid (0.5-2.0) mmol/L Calcium (8.6-10.3) mg/dL Total Bilirubin (0.2-1.0) mg/dL AST (13-39) U/L ALT (7-52) U/L Alkaline Phosphatase (34-104) U/L Total Creatine Kinase (10-223) U/L CK-MB (CK-2) (0.6-6.3) ng/mL Troponin I (<0.04) ng/mL C-Reactive Protein (< 5.00) mg/L Total Protein (6.4-8.9) g/dL Albumin (3.2-5.2) g/dL Globulin (2-4) g/dL Albumin/Globulin Ratio (1-3) Lipase (11.0-82.0) U/L Beta HCG, Quant mIU/mL Urine Color Yellow Urine Appearance Clear Urine pH 5.0 (5-9) Ur Specific [place] 1.017 (1.010-1.030) Urine Protein 1+(30 mg/dl) H (Negative) Urine Ketones Negative (Negative) Urine Blood 2+ H (Negative) Urine Nitrate Negative (Negative) Urine Bilirubin Negative (Negative) Urine Urobilinogen Negative (Negative) Ur Leukocyte Esterase Negative (Negative) Urine WBC (Auto) Trace(0-5/hpf) (Absent) Urine RBC (Auto) 1+(3-5/hpf) H (Absent) Ur Squamous Epith Cells Present H (Absent) Urine Bacteria Absent (Absent) Urine Glucose Negative (Negative) 09/11/16 09/11/16 Range/Units 13:20 13:20 WBC (3.5-10.8) 10^3/ul RBC (4.0-5.4) 10^6/ul Hgb (12.0-16.0) g/dl Hct (35-47) % MCV (80-97) fL MCH (27-31) pg MCHC (31-36) g/dl RDW (10.5-15) % Plt Count (150-450) 10^3/ul MPV (7.4-10.4) um3 Neut % (Auto) (38-83) % Lymph % (Auto) (25-47) % [place] % (Auto) (1-9) % Eos % (Auto) (0-6) % Baso % (Auto) (0-2) % Absolute Neuts (auto) (1.5-7.7) 10^3/ul Absolute Lymphs (auto) (1.0-4.8) 10^3/ul Absolute Monos (auto) (0-0.8) 10^3/ul Absolute Eos (auto) (0-0.6) 10^3/ul Absolute Basos (auto) (0-0.2) 10^3/ul Absolute Nucleated RBC 10^3/ul Nucleated RBC % INR (Anticoag Therapy) (0.89-1.11) APTT (26.0-36.3) seconds Sodium 130 L (133-145) mmol/L Potassium 3.8 (3.5-5.0) mmol/L Chloride 98 L (101-111) mmol/L Carbon Dioxide 26 (22-32) mmol/L Anion Gap 6 (2-11) mmol/L BUN 9 (6-24) mg/dL Creatinine 0.77 (0.51-0.95) mg/dL Est GFR ( Amer) 106.8 (>60) Est GFR (Non-Af Amer) 83.0 (>60) BUN/Creatinine Ratio 11.7 (8-20) Glucose 96 (70-100) mg/dL Lactic Acid 0.7 (0.5-2.0) mmol/L Calcium 10.4 H (8.6-10.3) mg/dL Total Bilirubin 1.00 (0.2-1.0) mg/dL AST 23 (13-39) U/L ALT 22 (7-52) U/L Alkaline Phosphatase 90 (34-104) U/L Total Creatine Kinase 83 (10-223) U/L CK-MB (CK-2) 0.8 (0.6-6.3) ng/mL Troponin I 0.00 (<0.04) ng/mL C-Reactive Protein 1.00 (< 5.00) mg/L Total Protein 8.7 (6.4-8.9) g/dL Albumin 4.8 (3.2-5.2) g/dL Globulin 3.9 (2-4) g/dL Albumin/Globulin Ratio 1.2 (1-3) Lipase 12 (11.0-82.0) U/L Beta HCG, Quant < 0.60 mIU/mL Urine Color Urine Appearance Urine pH (5-9) Ur Specific [place] (1.010-1.030) Urine Protein (Negative) Urine Ketones (Negative) Urine Blood (Negative) Urine Nitrate (Negative) Urine Bilirubin (Negative) Urine Urobilinogen (Negative) Ur Leukocyte Esterase (Negative) Urine WBC (Auto) (Absent) Urine RBC (Auto) (Absent) Ur Squamous Epith Cells (Absent) Urine Bacteria (Absent) Urine Glucose (Negative) Assess/Plan/Problems-Billing Assessment: Ms. Julien is a 41 yo female with a PMH of untreated HTN who presented on with concern for abdominal pain with n/v/d. - Patient Problems (1) Abdominal pain Code(s): R10.9 - UNSPECIFIED ABDOMINAL PAIN Comment: Appreciate GI consult Gallbladder US unremarkable. CT abd/pelvis with generalized submucosal edema in gastric body, suggestive of gastritis, PUD, or gallbladder colic Endoscopy pending. Continue pain management, pantoprazole gtt. (2) Kidney lesion Code(s): N28.9 - DISORDER OF KIDNEY AND URETER, UNSPECIFIED Comment: 0.9 cm left kidney lesion noted on CT. Recommend outpatient f/u CT in 3-6 months. (3) HTN (hypertension) Code(s): I10 - ESSENTIAL (PRIMARY) HYPERTENSION Comment: SBP 130s-140s. Continue to monitor. (4) Tobacco abuse Code(s): Z72.0 - TOBACCO USE Comment: Smoking cessation education provided. Nicotine replacement therapy PRN. (5) DVT prophylaxis Code(s): QAS0359 - Comment: Early ambulation Status and Disposition: OBV admit. D/c to home when medically stable.
[2016-09-12] MEDS ORDERED: Nicotine Inhaler* 10 MG AMP INH PRN (17:28)
[2016-09-12] MEDS ORDERED: Nicotine GUM* 2 MG PO PRN (17:28)
[2016-09-13] MEDS: Morphine INJ* 2 MG/ML 1 ML SYRINGE IV PRN ×7 (00:35→22:20)
[2016-09-13] MEDS: NS 0.9% 1000 ML* 1,000 ML IV SCH ×3 (01:13→21:07)
[2016-09-13] MEDS: Pantoprazole IV* 80 MG in NS 0.9% 250 ML* 250 ML IVPB SCH ×3 (03:32→13:57)
--- NOTE | 2016-09-13 05:39 | PRO ---
DATE OF PROCEDURE: 09/12/16 - ROOM #[id number] PROCEDURE: Gastroscopy with gastric biopsy and CLOtest biopsy. MEDICINES: Versed 10 mg IV, Fentanyl 100 mcg IV. NARRATIVE: This is a 41-year-old woman currently hospitalized with epigastric pain. A recent CAT scan of the abdomen suggested stomach inflammation and for that reason, an upper endoscopy is being carried out. DESCRIPTION OF PROCEDURE: After the procedure was discussed with the patient, risks and benefits were outlined, written consent was obtained. The patient was placed in the left lateral decubitus position and conscious sedation was administered. A video diagnostic gastroscope was inserted orally and passed very carefully into the esophagus. The esophagus, stomach, and duodenum to the second to third portion were visualized. The patient did have some restlessness during the procedure due to the conscious sedation but tolerated otherwise well and there were no immediate complications. FINDINGS: The esophagus was normal. There was no evidence of erosive change. The stomach was entered. The cardia, fundus, and body of the stomach were unremarkable; however, the antrum was notable for several scattered superficial ulcers and some nodular inflammatory change seen consistent with antral gastritis and scattered ulcers. No ulcer was bigger than 5 or 6 mm. There were no stigmata of bleeding. Biopsies were obtained from the ulcer as well; the CLOtest biopsy for H. pylori assessment. The pylorus was normal and patent. The duodenal bulb was normal and the second to third portion of the duodenum was normal with a normal folding pattern. CONCLUSION: Gastritis with scattered gastric ulcers as described above likely accounting for the patient's symptoms. Biopsies obtained as described above. RECOMMENDATION: I certainly would continue PPI therapy as being done. Biopsies will be followed up on. CC: Dr. Liset Sanders * [id number]/[facility] #: [id number] [facility]OSPITALOscar
--- NOTE | 2016-09-13 18:13 | PN ---
Subjective Date of Service: 09/13/16 Interval History: Patient seen and examined at bedside. Denies fever, chills, shortness of breath , chest discomfort, N/V/D. Pt continues to have upper abdominal pain that radiates to her back. Family History: Unchanged from Admission Social History: Unchanged from Admission Past Medical History: Unchanged from Admission Objective Active Medications: Sodium Chloride (Ns 0.9% 1000 Ml*) 1,000 mls @ 150 mls/hr IV PER RATE [facility] Pantoprazole Sodium 80 mg/ (Sodium Chloride) 250 mls @ 25 mls/hr IVPB Q10H [facility] Morphine Sulfate (Morphine Inj (Syringe)*) 4 mg IV Q3H PRN Reason: PAIN Nicotine (Nicotine Inhaler*) 10 mg INH Q2H PRN Reason: CRAVING Nicotine Polacrilex (Nicotine Gum*) 2 mg PO Q2H PRN Reason: CRAVING Ondansetron HCl (Zofran Inj*) 4 mg IV Q6H PRN Reason: NAUSEA Vital Signs 09/12/16 09/12/16 09/12/16 19:19 20:00 20:55 Temperature 97.7 F Pulse Rate 85 Respiratory 16 16 16 Rate Blood Pressure 142/74 (mmHg) O2 Sat by Pulse 100 Oximetry 09/12/16 09/12/16 09/13/16 21:55 23:35 00:35 Temperature 97.6 F Pulse Rate 65 Respiratory 18 17 20 Rate Blood Pressure 130/70 (mmHg) O2 Sat by Pulse 98 Oximetry 09/13/16 09/13/16 09/13/16 01:35 03:18 03:36 Temperature 98.0 F Pulse Rate 65 Respiratory 16 14 18 Rate Blood Pressure 120/77 (mmHg) O2 Sat by Pulse 97 Oximetry 09/13/16 09/13/16 09/13/16 04:36 07:11 07:20 Temperature 97.9 F Pulse Rate 72 Respiratory 18 16 16 Rate Blood Pressure 153/85 (mmHg) O2 Sat by Pulse 96 Oximetry 09/13/16 09/13/16 09/13/16 08:20 11:10 11:44 Temperature 97.7 F Pulse Rate 68 Respiratory 15 16 16 Rate Blood Pressure 136/78 (mmHg) O2 Sat by Pulse 97 Oximetry 09/13/16 09/13/16 16:01 16:05 Temperature 98.0 F Pulse Rate 67 Respiratory 20 16 Rate Blood Pressure 152/88 (mmHg) O2 Sat by Pulse 98 Oximetry Oxygen Devices in Use Now: None Appearance: NAD, laying in bed Eyes: No Scleral Icterus, PERRLA Ears/Nose/Mouth/Throat: NL Teeth, Lips, Gums, Mucous Membranes Moist Neck: NL Appearance and Movements; NL JVP, Trachea Midline Respiratory: Symmetrical Chest Expansion and Respiratory Effort, Clear to Auscultation Cardiovascular: NL Sounds; No Murmurs; No JVD, RRR Abdominal: - - Bowel sounds present, tenderness to upper abdomen, no guarding or rebound Extremities: No Edema Skin: No Rash or Ulcers Neurological: Alert and Oriented x 3, NL Muscle Strength and Tone Lines/Tubes/Other Access: Clean, Dry and Intact Peripheral IV - x 2, site benign Nutrition: Taking PO's Result Diagrams: 09/12/16 06:52 09/12/16 06:52 Additional Lab and Data: Microbiology and Other Data: Microbiology 09/12/16 16:15 CLOtest - Final Gastric Antrum Assess/Plan/Problems-Billing Assessment: Ms. Julien is a 41 yo female with a PMH of untreated HTN who presented on with concern for abdominal pain with n/v/d. - Patient Problems (1) Abdominal pain Code(s): R10.9 - UNSPECIFIED ABDOMINAL PAIN SNOMED Code(s): 26164646 Comment: - Appreciate GI consult - Gallbladder US unremarkable. - CT abd/pelvis with generalized submucosal edema in gastric body, suggestive of gastritis, PUD, or gallbladder colic - Upper Endoscopy showing gastritis and gastric ulcers. Clotest negative - Continue pain management, pantoprazole gtt. (2) Kidney lesion Code(s): N28.9 - DISORDER OF KIDNEY AND URETER, UNSPECIFIED SNOMED Code(s): 87493118 Comment: - 0.9 cm left kidney lesion noted on CT. - Recommend outpatient f/u CT in 3-6 months. (3) HTN (hypertension) Code(s): I10 - ESSENTIAL (PRIMARY) HYPERTENSION SNOMED Code(s): 10805440 Comment: - SBP 130s-140s. Continue to monitor. (4) Tobacco abuse Code(s): Z72.0 - TOBACCO USE SNOMED Code(s): 668893469 Comment: - Smoking cessation education provided. - Nicotine replacement therapy PRN. (5) DVT prophylaxis Code(s): ULE1023 - SNOMED Code(s): 852820563 Comment: - Early ambulation (6) Full code status Code(s): Z78.9 - OTHER SPECIFIED HEALTH STATUS SNOMED Code(s): 273865397 Status and Disposition: OBV admit. D/c to home when medically stable.
[2016-09-14] MEDS: Pantoprazole IV* 80 MG in NS 0.9% 250 ML* 250 ML IVPB SCH ×3 (01:32→05:17)
[2016-09-14] MEDS: Morphine INJ* 2 MG/ML 1 ML SYRINGE IV PRN (02:51)
[2016-09-14] MEDS: NS 0.9% 1000 ML* 1,000 ML IV SCH (07:08)
--- NOTE | 2016-09-14 12:16 | PN ---
Subjective Date of Service: 09/14/16 Interval History: Patient seen and examined at bedside. Pt states that her abdominal pain has improved and she has not needed pain medication since during the night. Denies fever, chills, shortness of breath, chest discomfort, N/V/D. Pt is tolerating a full liquid diet well. Pt reports some dizziness overnight with ambulation and this has resolved since stopping the morphine. Family History: Unchanged from Admission Social History: Unchanged from Admission Past Medical History: Unchanged from Admission Objective Active Medications: Morphine Sulfate (Morphine Inj (Syringe)*) 4 mg IV Q4H PRN Reason: PAIN Nicotine (Nicotine Inhaler*) 10 mg INH Q2H PRN Reason: CRAVING Nicotine Polacrilex (Nicotine Gum*) 2 mg PO Q2H PRN Reason: CRAVING Omeprazole (Prilosec Cap*) 20 mg PO BID ALEJANDRO Ondansetron HCl (Zofran Inj*) 4 mg IV Q6H PRN Reason: NAUSEA Vital Signs 09/13/16 09/13/16 09/13/16 14:18 15:18 16:01 Temperature 98.0 F Pulse Rate 67 Respiratory 16 16 20 Rate Blood Pressure 152/88 (mmHg) O2 Sat by Pulse 98 Oximetry 09/13/16 09/13/16 09/13/16 19:40 20:00 22:20 Temperature 97.8 F Pulse Rate 96 Respiratory 16 16 18 Rate Blood Pressure 135/77 (mmHg) O2 Sat by Pulse 99 Oximetry 09/13/16 09/13/16 09/14/16 23:20 23:46 02:51 Temperature 97.9 F Pulse Rate 81 Respiratory 18 16 16 Rate Blood Pressure 141/53 (mmHg) O2 Sat by Pulse 98 Oximetry 09/14/16 09/14/16 09/14/16 03:24 03:51 07:36 Temperature 97.7 F 98.0 F Pulse Rate 63 63 Respiratory 16 18 18 Rate Blood Pressure 129/76 176/93 (mmHg) O2 Sat by Pulse 98 99 Oximetry 09/14/16 09/14/16 09/14/16 08:00 08:13 11:38 Temperature 98.0 F Pulse Rate 71 Respiratory 16 18 Rate Blood Pressure 156/89 150/80 (mmHg) O2 Sat by Pulse 100 Oximetry Oxygen Devices in Use Now: None Appearance: NAD, sitting up in bed Eyes: No Scleral Icterus, PERRLA Ears/Nose/Mouth/Throat: NL Teeth, Lips, Gums, Mucous Membranes Moist Neck: NL Appearance and Movements; NL JVP, Trachea Midline Respiratory: Symmetrical Chest Expansion and Respiratory Effort, Clear to Auscultation Cardiovascular: NL Sounds; No Murmurs; No JVD, RRR Abdominal: - - Some tenderness with palpation to the upper abdomen and epigastric area, no guarding or rebound pain. Bowel sounds present Extremities: No Edema Skin: No Rash or Ulcers Neurological: Alert and Oriented x 3, NL Muscle Strength and Tone Lines/Tubes/Other Access: Clean, Dry and Intact Peripheral IV - x 2, site benign Nutrition: Taking PO's Result Diagrams: 09/12/16 06:52 09/12/16 06:52 Additional Lab and Data: Microbiology and Other Data: Microbiology 09/12/16 16:15 CLOtest - Final Gastric Antrum Assess/Plan/Problems-Billing Assessment: Ms. Julien is a 41 yo female with a PMH of untreated HTN who presented on with concern for abdominal pain with n/v/d. - Patient Problems (1) Abdominal pain Code(s): R10.9 - UNSPECIFIED ABDOMINAL PAIN SNOMED Code(s): 00037308 Comment: - Appreciate GI consult - Gallbladder US unremarkable. - CT abd/pelvis with generalized submucosal edema in gastric body, suggestive of gastritis, PUD, or gallbladder colic - Upper Endoscopy showing gastritis and gastric ulcers. Clotest negative - Will stop protonix gtt and switch to Omeprazole (2) Kidney lesion Code(s): N28.9 - DISORDER OF KIDNEY AND URETER, UNSPECIFIED SNOMED Code(s): 93633591 Comment: - 0.9 cm left kidney lesion noted on CT. - Recommend outpatient f/u CT in 3-6 months. (3) HTN (hypertension) Code(s): I10 - ESSENTIAL (PRIMARY) HYPERTENSION SNOMED Code(s): 21789746 Comment: - SBP 120s-150s. Continue to monitor. (4) Tobacco abuse Code(s): Z72.0 - TOBACCO USE SNOMED Code(s): 659151226 Comment: - Smoking cessation education provided. - Nicotine replacement therapy PRN. (5) DVT prophylaxis Code(s): YGV1979 - SNOMED Code(s): 572241534 Comment: - Early ambulation (6) Full code status Code(s): Z78.9 - OTHER SPECIFIED HEALTH STATUS SNOMED Code(s): 207525931 Status and Disposition: Inpatient. D/c to home when medically stable. Possibly later today, if able to tolerate a regular diet.
[2016-09-14] MEDS ORDERED: Omeprazole CAP* 20 MG PO SCH (13:00)
[2016-09-14 15:38] VITALS: BP 150/83
--- NOTE | 2016-09-15 07:51 | DS ---
DISCHARGE SUMMARY: DATE OF ADMISSION: 09/11/16 DATE OF DISCHARGE: 09/14/16 ATTENDING PHYSICIAN: Dr. Edgar Lundberg *(dictated by Heidy Young NP). PRIMARY CARE PROVIDER: Dr. Liset Sanders. PRIMARY DIAGNOSIS: Peptic ulcer. SECONDARY DIAGNOSIS: Hypertension, untreated. CONSULTATIONS WHILE IN THE HOSPITAL: Dr. Hair Mensah with Gastroenterology. PROCEDURES WHILE IN THE HOSPITAL: Status post gastroscopy with gastric biopsy and CLOtest on 09/12/[address] Mensah. Conclusion: Gastritis with scattered gastric ulcers likely accounting for the patient's symptoms. Biopsies were obtained. STUDIES WHILE IN THE HOSPITAL: 1. Abdomen/pelvis CT on 09/11/16. Radiologist's impression: There is submucosal edema in the gastric antrum which is circumferential. Clinical correlation is suggested and further evaluation may be indicated. There is a low density 9-mm lesion arising from the upper pole of the left kidney. This does not measure fluid density and was not present on prior CT dated . Further evaluation with ultrasound of the kidney and pre and post contrast CT of the kidney is suggested. 2. Gallbladder ultrasound on 09/12/16. Radiologist's impression: No acute sonographic pathology of the visualized portion of the abdomen. DISCHARGE MEDICATIONS: New home medications: Omeprazole 20 mg oral twice daily. Discontinued medications: Augmentin. HISTORY OF PRESENT ILLNESS/HOSPITAL COURSE: Ms. Julien is a 41-year-old female with no significant past medical history, who presents to the emergency room with complaints of epigastric discomfort, nausea, and diarrhea for approximately 2 weeks. The patient initially presented [facility] on September 02 with these complaints of associated viral gastroenteritis. The patient had some postprandial epigastric pain with associated nausea and intermittent diarrhea for 2 weeks. The night prior to the patient's admission, she reports eating scalloped potatoes and ham and having nausea and anorexia. During the night, the patient developed epigastric pain with a radiating band in the the left and right around to her spine, so the patient presented to the emergency room for further evaluation. It is also noted that the patient presented to [facility] on September 08 with sore throat and left ear pain and was started on Augmentin twice daily. While in the emergency room, the patient had labs that were fairly unremarkable. She has troponin of 0.00, white blood cell count of 11.9. She had a CT scan of her abdomen and pelvis showing a generalized submucosal edema of the gastric body with no perforation and no gallbladder thickening but did show a 0.9-cm left kidney lesion that likely needs followup. The hospitalists were asked to evaluate the patient for admission. While in the hospital, the patient was initially treated for gastritis and treated for an ulcer with a Protonix drip. She had serial hemoglobins and hematocrit to ensure she was not having a GI bleed. During the patient's time, her hemoglobin and hematocrit did drop slightly but she had no overt signs of bleeding. She went from 15.5 on admission to 11.8 a few days prior to discharge. The patient initially presented with leukocytosis that resolved during her stay. The patient initially was hyponatremic and that resolved during her stay. The patient had normal liver function tests. The patient underwent gastroscopy with Dr. Mensah on September 12 that showed gastritis with scattered gastric ulcers and biopsies were obtained. It was recommended that the patient be continued on a PPI therapy. The patient's stomach biopsy showed ulcerated antral-type gastric mucosa with reactive epithelial change and a chronic inflammatory exudate. No evidence of neoplasm. The patient's CLOtest was negative for H. pylori. During the patient's stay, her nausea resolved and her abdominal pain additionally resolved. The patient's diet was slowly advanced and she was able to tolerate regular diet. As far as the patient's hypertension, she was intermittently hypertensive during her stay and on two occasions. She had systolic blood pressures of 170s. Her blood pressures are generally in the 120s to 150s. Again, it was felt the patient was slightly dehydrated on admission. She received IV hydration in addition to Protonix drip. The patient was transitioned from Protonix drip to oral omeprazole. Ms. Julien is stable for discharge to home today. Vital signs are as follows: Temperature 98.2, heart rate 72, respiratory rate 18, O2 sat 99% on room air, blood pressure 150/83. DISCHARGE PLAN: Ms. Julien will be discharged to home. ACTIVITY: As tolerated. DIET: She will be on a regular diet. I have encouraged her to eat small and more frequent meals. Avoid carbonated drinks, alcohol, caffeine, spicy, or acidic foods. DISCHARGE INSTRUCTIONS: As far as the patient's gastric ulcer, she has been started on omeprazole 20 mg oral twice daily. She should be seen in followup with Dr. Mensah and she has an appointment on October 16 at 1:30 p.m. The patient should also undergo repeat EGD in approximately 2 months. The patient has also been asked to avoid alcohol and NSAIDs. As far as the patient's hypertension, I have recommended that she follow with her primary care provider as she will most likely need antihypertensive agents if she continues to be hypertensive after discharge. In regard to the incidental finding of a left kidney lesion, I recommended the patient have a followup CT in the next 3 to 6 months. The patient has been asked to call her primary care provider's office, Dr. Sanders, and set up an appointment for the next 1 to 2 weeks. The patient has been asked to return to the emergency room for shortness of breath, for chest discomfort. This is a summarized report of a complex medical history and hospital stay. For further details, please see the entire medical record. TIME SPENT: Time for this discharge was 50 minutes; 25 minutes was spent face- to- face with the patient discussing discharge plans and instructions. CONDITION ON DISCHARGE: Stable. HEIDY YOUNG NP CC: Dr. Hair Mensah; Dr. Liset Sanders * [id number]/[facility] #: [id number] MTDD
== END 2016-09-14 15:35 | disposition home or self-care (01) | DRG 241 ==
LOC: ED 11:25 → SSU 17:47 → OBSVTOIN 20:11 → SSU 09-13 17:23
PROVIDERS: ADMIT Internal Medicine; ATTEND Hospitalist
PROC: 0DB78ZX Excision of Stomach, Pylorus, Via Natural or Artificial Opening Endoscopic, Diagnostic (ICD-10-PCS; principal; 2016-09-12)
DX: K25.9 Gastric ulcer, unspecified as acute or chronic, without hemorrhage or perforation (principal); E87.1 Hypo-osmolality and hyponatremia; I10 Essential (primary) hypertension; K29.70 Gastritis, unspecified, without bleeding; N28.9 Disorder of kidney and ureter, unspecified; E86.0 Dehydration; D72.829 Elevated white blood cell count, unspecified; Z82.49 Family history of ischemic heart disease and other diseases of the circulatory system; Z80.9 Family history of malignant neoplasm, unspecified; Z72.0 Tobacco use
CPT/HCPCS: 36415; 74177; 76705; 80048; 80053; 81003; 81015; 82550; 82553; 83605; 83690; 84484; 84702; 85014; 85018; 85025; 85610; 85730; 86140; 87077; 88305; 88312; 88342; 99406; A9270-GY; G0378; J2250; J2270; J2405; J3010; Q9967

== ENCOUNTER 2017-03-24 07:58 | Emergency (ER) | payer MEDICAID, OTHER ==
--- NOTE | 2017-03-24 09:01 | UC ---
Abdominal Pain Female HPI - HPI Summary HPI Summary: 41 yo female presents with bilateral lower abd pain x 3 days no f/c no n/v/d max pain 8/10 currently around a 5 or 6 missed 2 days of work thinks it's due to ovarian cysts - History of Current Complaint Chief Complaint: UCGU Stated Complaint: SKIN COMPLAINT Time Seen by Provider: 03/24/17 08:29 Hx Obtained From: Patient Hx Last Menstrual Period: unknown, on depo Onset/Duration: Gradual Onset, Lasting Days Timing: Constant Severity Initially: Severe Severity Currently: Moderate Pain Intensity: 6 Pain Scale Used: 0-10 Numeric Location: Discrete At: RLQ, Discrete At: LLQ Character: Aching, Burning Aggravating Factor(s): Nothing Alleviating Factor(s): Nothing Associated Signs and Symptoms: Positive: Negative Female Torso: 1 - pain here Allergies/Adverse Reactions: Allergies Allergy/AdvReac Type Severity Reaction Status Date / Time No Known Allergies Allergy Verified 03/24/17 08:06 Home Medications: Home Medications medroxyPROGESTERone ACETATE* [DEPO-Provera] 150 mg IM EVERY OTHER DAY 03/24/17 [ History Confirmed 03/24/17] PMH/Surg Hx/FS Hx/Imm Hx Previously Healthy: Yes GI/ History: Ulcer, Other Other GI/ History: "I have something on my left kidney" Other History Of: Negative For: Anticoagulant Therapy - Surgical History Surgical History: Yes Surgery Procedure, Year, and Place: LEEP procedure 2016 - Family History Known Family History: Negative: Cardiac Disease, Hypertension, Diabetes - Social History Alcohol Use: Occasionally Substance Use Type: None Smoking Status (MU): Light Every Day Tobacco Smoker Type: Cigarettes Amount Used/How Often: 1/2 pack per day Household Exposure Type: Cigarettes - Immunization History Most Recent Influenza Vaccination: Never Most Recent Tetanus Shot: Unknown Most Recent Pneumonia Vaccination: Never Review of Systems Constitutional: Negative Skin: Negative Eyes: Negative ENT: Negative Respiratory: Negative Cardiovascular: Negative Gastrointestinal: Abdominal Pain Genitourinary: Negative Motor: Negative Neurovascular: Negative Musculoskeletal: Negative Neurological: Negative Psychological: Negative Is Patient Immunocompromised?: No All Other Systems Reviewed And Are Negative: Yes Physical Exam Triage Information Reviewed: Yes Appearance: Well-Appearing, No Pain Distress, Well-Nourished Vital Signs: Initial Vital Signs Temp 98.3 F 03/24/17 08:01 Pulse 86 03/24/17 08:01 Resp 15 03/24/17 08:01 BP 137/86 03/24/17 08:01 Pulse Ox 100 03/24/17 08:01 Vital Signs Reviewed: Yes Eyes: Positive: Conjunctiva Clear ENT: Positive: Hearing grossly normal, Pharynx normal, Pharyngeal erythema. Negative: Nasal congestion, Nasal drainage, Tonsillar exudate, Trismus, Muffled/ hoarse voice Neck exam: Normal Neck: Positive: Supple, Nontender, No Lymphadenopathy Respiratory: Positive: Lungs clear, Normal breath sounds, No respiratory distress, No accessory muscle use Cardiovascular: Positive: RRR, No Murmur, Pulses Normal Abdomen Description: Positive: Soft, Other: - ext gen-no lesions/vagina-scant d/ c, right vaginal side wall thickened cx-scant D/C, no CMT, adenexa-nontender. Negative: Nontender - tender LUQ, CVA Tenderness (R), CVA Tenderness (L), Distended, Guarding, Hernia @, Hepatomegaly, McBurney's Point Tenderness, Peritoneal Signs, Pulsatile Mass, Splenomegaly Musculoskeletal: Positive: ROM Intact, No Edema Neurological: Positive: Alert Psychological Exam: Normal Skin Exam: Normal Abd Pain Female Course/Dx - Course Course Of Treatment: reviewed CT scan from 09/07- left renal mass noted 0.9 cm, patient states she has not had this investigate. she desires to to go [facility] via EMS (no ride). [facility] (Dr[facility]). Copy of our August CT reading printed and sent along with patient. Disc burned as well - Differential Dx/Diagnosis Provider Diagnoses: left upper quadrient abdominal pain of uncertain cause. know left renal mass- not fully investigated. pelvic pain of uncertain cause. abnormal pelvic exam (thickening of right vaginal sidewall)- uncertain of signicance Discharge - Discharge Plan Condition: Stable Disposition: TRANS HIGHER L OF CARE FAC
[2017-03-24 09:18] VITALS: BP 137/83
--- NOTE | 2017-03-26 07:31 | UC ---
Progress - Progress Note Progress Note: + BV will ERx Flagyl 500 mg 2 x per day for 7 days
== END 2017-03-24 09:29 | disposition short-term general hospital (02) ==
LOC: UCCORT 07:58
DX: R10.12 Left upper quadrant pain (principal); Z32.02 Encounter for pregnancy test, result negative; F17.210 Nicotine dependence, cigarettes, uncomplicated
CPT/HCPCS: 81003; 84702; 87086; 87480; 87491; 87510; 87591; 87661; 99213; G0463

== ENCOUNTER 2017-08-25 17:05 | Emergency (ER) | payer OTHER ==
--- NOTE | 2017-08-25 19:04 | UC ---
UC General HPI - HPI Summary HPI Summary: pt is c/o a sore throat and R ear pain since last week. also, fell on 08/03 and hit L side of back. she has some ongoing soreness. no fever, cp, sob or numb/ weak extremities. - History of Current Complaint Hx Obtained From: Patient Hx Last Menstrual Period: on depo inj Timing: Constant Pain Intensity: 8 Aggravating: nothing Alleviating: nothing Associated Signs & Symptoms: Positive: Back Pain. Negative: Cough, Chest Pain, Dysuria, Fever, Headache, SOB <Marie Leal - Last Filed: 08/25/17 19:44> <Marcela Lundberg - Last Filed: 08/25/17 21:02> - History of Current Complaint Chief Complaint: UCRespiratory Stated Complaint: SORE THROAT Time Seen by Provider: 08/25/17 18:43 - Allergy/Home Medications Allergies/Adverse Reactions: Allergies Allergy/AdvReac Type Severity Reaction Status Date / Time No Known Allergies Allergy Verified 08/25/17 18:39 Home Medications: Home Medications NK [No Home Medications Reported] 08/25/17 [History Confirmed 08/25/17] PMH/Surg Hx/FS Hx/Imm Hx GI/ History: Ulcer Other History Of: Negative For: Anticoagulant Therapy - Surgical History Surgical History: Yes Surgery Procedure, Year, and Place: LEEP procedure 2016 - Family History Known Family History: Negative: Cardiac Disease, Hypertension, Diabetes - Social History Occupation: Unemployed Lives: With Family Alcohol Use: Occasionally Substance Use Type: None Smoking Status (MU): Light Every Day Tobacco Smoker Type: Cigarettes Amount Used/How Often: 1/2 pack per day Household Exposure Type: Cigarettes - Immunization History Most Recent Influenza Vaccination: Never Most Recent Tetanus Shot: Unknown Most Recent Pneumonia Vaccination: Never Vaccination Up to Date: Yes <Marie Leal - Last Filed: 08/25/17 19:44> Review of Systems Constitutional: Negative Skin: Negative Eyes: Negative ENT: Sore Throat, Ear Ache Respiratory: Negative Cardiovascular: Negative Gastrointestinal: Negative Genitourinary: Negative Motor: Negative Neurovascular: Negative Musculoskeletal: Other: - pain L side of back Neurological: Negative Psychological: Negative Is Patient Immunocompromised?: No All Other Systems Reviewed And Are Negative: Yes <Marie Leal - Last Filed: 08/25/17 19:44> Physical Exam Triage Information Reviewed: Yes Appearance: Well-Appearing Vital Signs: Initial Vital Signs Temp 97.8 F 08/25/17 18:40 Pulse 78 08/25/17 18:40 Resp 16 08/25/17 18:40 BP 157/103 08/25/17 18:40 Pulse Ox 99 08/25/17 18:40 Vital Signs Reviewed: Yes Eyes: Positive: Conjunctiva Clear ENT: Positive: Pharyngeal erythema, TMs normal, Uvula midline. Negative: Nasal congestion, Nasal drainage, Tonsillar swelling, Tonsillar exudate, Trismus, Muffled voice, Hoarse voice, Sinus tenderness Neck: Positive: Supple, Tenderness @ - peritonsilar nodes, Enlarged Nodes @ - peritonsilar Respiratory: Positive: Chest non-tender, Lungs clear, Normal breath sounds Cardiovascular: Positive: RRR, No Murmur, Pulses Normal Abdomen Description: Positive: Nontender, No Organomegaly, Soft Bowel Sounds: Positive: Present Musculoskeletal: Positive: Other: - Back is without gross deformity, swelling or discoloration. ROM is intact. s/v/m intact x4. Psychological: Positive: Age Appropriate Behavior Skin Exam: Normal <Marie Leal - Last Filed: 08/25/17 19:44> Vital Signs: Initial Vital Signs Temp 97.8 F 08/25/17 18:40 Pulse 78 08/25/17 18:40 Resp 16 08/25/17 18:40 BP 157/103 08/25/17 18:40 Pulse Ox 99 08/25/17 18:40 <Marcela Lundberg - Last Filed: 08/25/17 21:02> Diagnostics - Laboratory Diagnostic Studies Completed/Ordered: u/a=no blood and rapid strep=neg <Marie Leal - Last Filed: 08/25/17 19:44> Course/Dx - Course Course Of Treatment: strep was neg. no antibiotic indicated. ear exam benign. no blood in urine and no concern for fx from the fall. back is c/w a contusion. BP is elevated, no hx htn. pt advised of need for close f/u and BP recheck. referal to N given. - Differential Dx - Multi-Symptom Provider Diagnoses: sore throat, otalgia R ear, contusion L back <Marie Leal - Last Filed: 08/25/17 19:44> Discharge <Marie Leal - Last Filed: 08/25/17 19:44> <Marcela Lundberg - Last Filed: 08/25/17 21:02> - Discharge Plan Condition: Stable Disposition: HOME Patient Education Materials: Pharyngitis (ED), Hypertension (ED), Back Pain (ED ) Referrals: GLENYS Rehman [Medical Doctor] - 5 Days Attestation Statement User Type: Provider - I was available for consult. This patient was seen by the advanced practice provider. The patient was not presented to, seen by, or examined by me.-Raúl <Marcela Lundberg - Last Filed: 08/25/17 21:02>
[2017-08-25 19:32] VITALS: BP 150/90
== END 2017-08-25 19:48 | disposition home or self-care (01) ==
LOC: UCCORT 17:05
DX: J02.9 Acute pharyngitis, unspecified (principal); H92.01 Otalgia, right ear; S30.0XXA Contusion of lower back and pelvis, initial encounter; W19.XXXA Unspecified fall, initial encounter; Y93.9 Activity, unspecified; Y92.9 Unspecified place or not applicable; R03.0 Elevated blood-pressure reading, without diagnosis of hypertension; F17.210 Nicotine dependence, cigarettes, uncomplicated
CPT/HCPCS: 81003; 87651; 99212; G0463

== ENCOUNTER 2018-01-03 16:37 | Emergency (ER) | payer OTHER ==
[2018-01-03 18:16] VITALS: BP 156/101
--- NOTE | 2018-01-03 18:43 | UC ---
Throat Pain/Nasal Omari HPI - HPI Summary HPI Summary: Pt c/o sore throat, fever, chills, generalized malaise, cough, X 3 days. - History of Current Complaint Stated Complaint: SORE THROAT Time Seen by Provider: 01/03/18 18:05 Hx Obtained From: Patient Hx Last Menstrual Period: depo ?: No Onset/Duration: Sudden Onset, Lasting Days, Still Present, Worse Since - onset Severity: Severe Pain Intensity: 10 Cough: Nonproductive Associated Signs & Symptoms: Positive: Fever Related History: Smoking - Epiglottits Risk Factors Epiglottis Risk Factors: Negative - Allergies/Home Medications Allergies/Adverse Reactions: Allergies Allergy/AdvReac Type Severity Reaction Status Date / Time No Known Allergies Allergy Verified 01/03/18 18:08 Home Medications: Home Medications Escitalopram Oxalate [Lexapro 10 mg] 5 mg PO DAILY 01/03/18 [History Confirmed 01/03/18] hydrOXYzine HCL TAB* [Atarax 25 MG TAB*] 25 mg PO TID 01/03/18 [History Confirmed 01/03/18] PMH/Surg Hx/FS Hx/Imm Hx Previously Healthy: Yes Other History Of: Negative For: Anticoagulant Therapy - Surgical History Surgical History: Yes Surgery Procedure, Year, and Place: LEEP procedure 2016 - Family History Known Family History: Negative: Cardiac Disease, Hypertension, Diabetes - Social History Occupation: Employed Full-time Lives: With Family Alcohol Use: Occasionally Substance Use Type: None Smoking Status (MU): Light Every Day Tobacco Smoker Type: Cigarettes Amount Used/How Often: 1/2 pack per day Length of Time of Smoking/Using Tobacco: unknown Have You Smoked in the Last Year: Yes Household Exposure Type: Cigarettes - Immunization History Most Recent Influenza Vaccination: Never Most Recent Tetanus Shot: Unknown Most Recent Pneumonia Vaccination: Never Vaccination Up to Date: Yes Review of Systems Constitutional: Fever, Chills, Fatigue Skin: Negative Eyes: Negative ENT: Sore Throat Respiratory: Cough Cardiovascular: Negative Gastrointestinal: Negative Genitourinary: Negative Motor: Negative Neurovascular: Negative Musculoskeletal: Negative Neurological: Negative Psychological: Negative Is Patient Immunocompromised?: No All Other Systems Reviewed And Are Negative: Yes Physical Exam Triage Information Reviewed: Yes Appearance: Ill-Appearing Vital Signs: Initial Vital Signs Temp 98.7 F 01/03/18 18:09 Pulse 88 07/13/18 18:09 Resp 20 01/03/18 18:09 BP 156/101 01/03/18 18:09 Pulse Ox 100 01/03/18 18:09 Vital Signs Reviewed: Yes Eye Exam: Normal ENT Exam: Other ENT: Positive: Pharyngeal erythema, Nasal congestion Dental Exam: Normal Neck exam: Normal Respiratory: Positive: Wheezing Cardiovascular Exam: Normal Musculoskeletal Exam: Normal Neurological Exam: Normal Psychological Exam: Normal Skin Exam: Normal Throat Pain/Nasal Course/Dx - Differential Dx/Diagnosis Differential Diagnosis/HQI/PQRI: Pharyngitis Provider Diagnoses: Bronchitis. pharyngitis Discharge - Sign-Out/Discharge Documenting (check all that apply): Patient Departure - Discharge Plan Condition: Stable Disposition: HOME Prescriptions: Azithromycin TAB* [Zithromax TAB (Z-KATIE) 250 mg #6 tabs] 2 tab PO .TODAY, THEN 1 DAILY #1 katie Patient Education Materials: Pharyngitis (ED), Acute Bronchitis (ED) Forms: *Work Release Referrals: [facility] [place] [facility]FERR[facility] [Outside] No Primary Care Phys,NOPCP [Primary Care Provider] - - Billing Disposition and Condition Condition: STABLE Disposition: Home
== END 2018-01-03 18:59 | disposition home or self-care (01) ==
LOC: UCCORT 16:37
DX: J02.9 Acute pharyngitis, unspecified (principal); J40 Bronchitis, not specified as acute or chronic; R50.9 Fever, unspecified; R53.81 Other malaise; R05 Cough; F17.210 Nicotine dependence, cigarettes, uncomplicated
CPT/HCPCS: 87651; 99212; G0463

== ENCOUNTER 2018-09-07 09:50 | Emergency (ER) | payer OTHER ==
[2018-09-07 10:10] VITALS: BP 167/103
--- NOTE | 2018-09-07 11:26 | UC ---
Abdominal Pain Female HPI - HPI Summary HPI Summary: The patient is a 43-year-old female who presents here for the evaluation of right lower quadrant abdominal pain that started yesterday. The pain started fairly acutely and has gradually increased. She states her current pain level is 10 out of 10. She declines to take any pain medicines. She denies any fever or chills. She denies any nausea or vomiting. She was recently seen at [facility] in the emergency department for the evaluation of lower abdominal pain. She states that that pain was almost as bad as her pain currently. Her symptoms sound were crossed her entire lower abdomen. She states that she had blood work done which was reported as being normal. She states that she had a CT of her abdomen and pelvis as well as a pelvic ultrasound which were reportedly normal. States she had a speculum exam done. She was given a diagnosis of abdominal pain of uncertain cause and was instructed to follow-up with her physician. Her symptoms resolved after a day or so and she did not follow-up. Her visit was 2-3 weeks ago. She states that she started having some vaginal bleeding 3-4 days ago. This was her first period for over a year. She has been taking Depakote shots in the past but has not had a Doppler shot for over a year. He denies any UTI symptoms. She denies any back pain. - History of Current Complaint Chief Complaint: UCGU Stated Complaint: LOWER ABD PAIN Time Seen by Provider: 09/07/18 11:09 Hx Obtained From: Patient Hx Last Menstrual Period: 09/04/18 Onset/Duration: Sudden Onset, Lasting Hours Timing: Constant Severity Initially: Mild Severity Currently: Severe Pain Intensity: 10 Pain Scale Used: 0-10 Numeric Location: Discrete At: RLQ Radiates: Yes Character: Sharp Aggravating Factor(s): Nothing Alleviating Factor(s): Nothing Associated Signs and Symptoms: Positive: Vaginal Bleeding. Negative: Diaphoresis, Fever, Cough, Chest Pain, Dizzy, Back Pain, Constipation, Blood in Stool, Urinary Symptoms, Decreased Appetite, Vaginal Discharge, Nausea, Vomiting , Diarrhea Allergies/Adverse Reactions: Allergies Allergy/AdvReac Type Severity Reaction Status Date / Time No Known Allergies Allergy Verified 09/07/18 10:06 Home Medications: Home Medications NK [No Home Medications Reported] 09/07/18 [History Confirmed 09/07/18] PMH/Surg Hx/FS Hx/Imm Hx Previously Healthy: Yes Other History Of: Negative For: Anticoagulant Therapy - Surgical History Surgical History: Yes Surgery Procedure, Year, and Place: LEEP procedure 2016 - Family History Known Family History: Negative: Cardiac Disease, Hypertension, Diabetes - Social History Alcohol Use: 6-7 glasses of wine daily Substance Use Type: None Smoking Status (MU): Heavy Every Day Tobacco Smoker Type: Cigarettes Amount Used/How Often: ~1/2 PPD Length of Time of Smoking/Using Tobacco: On and Off Since Age 17 Have You Smoked in the Last Year: Yes Household Exposure Type: Cigarettes Cessation Counseling: Patient Advised to Stop - Immunization History Most Recent Influenza Vaccination: Never Most Recent Tetanus Shot: Unknown Most Recent Pneumonia Vaccination: Never Vaccination Up to Date: Yes Review of Systems All Other Systems Reviewed And Are Negative: Yes Constitutional: Positive: Negative Skin: Positive: Negative Eyes: Positive: Negative ENT: Positive: Negative Respiratory: Positive: Negative Cardiovascular: Positive: Negative Gastrointestinal: Positive: Abdominal Pain Motor: Positive: Negative Neurovascular: Positive: Negative Musculoskeletal: Positive: Negative Neurological: Positive: Negative Psychological: Positive: Negative Physical Exam Triage Information Reviewed: Yes Appearance: Well-Appearing, No Pain Distress, Well-Nourished Vital Signs: Initial Vital Signs Temp 98.9 F 09/07/18 10:00 Pulse 80 09/07/18 10:00 Resp 18 09/07/18 10:00 BP 167/103 09/07/18 10:00 Pulse Ox 100 09/07/18 10:00 Vital Signs Reviewed: Yes Eyes: Positive: Conjunctiva Clear ENT: Positive: Hearing grossly normal, Uvula midline. Negative: Nasal congestion, Nasal drainage, Trismus, Muffled voice, Hoarse voice Neck: Positive: Supple, Nontender, No Lymphadenopathy Respiratory: Positive: Lungs clear, Normal breath sounds, No respiratory distress, No accessory muscle use Cardiovascular: Positive: RRR, No Murmur Abdomen Description: Positive: Nontender - no pain with deep palpation, No Organomegaly, Soft. Negative: CVA Tenderness (R), CVA Tenderness (L), Distended , Guarding, Hernia @, Hepatomegaly, McBurney's Point Tenderness, Peritoneal Signs, Pulsatile Mass, Splenomegaly Bowel Sounds: Positive: Present Pelvic Exam: Positive: No Cerv. Motion Tender, Tender Adnexa - R Musculoskeletal: Positive: ROM Intact, No Edema Neurological: Positive: Alert Psychological Exam: Normal Skin Exam: Normal Abd Pain Female Course/Dx - Course Course Of Treatment: The patient's medical records from her visit on 08/15/2018 were reviewed. They' re her CBC was normal other than an elevated MCV. Urinalysis was negative she had a negative hCG done there she had negative tests performed for trichomoniasis, chlamydia, and gonorrhea. Her transabdominal pelvic ultrasound was negative. Her CT of the abdomen and pelvis was negative. A speculum exam was not performed here today. I did a bimanual exam and the patient was tender in the right adnexa cough or no masses appreciated. She had no cervical motion tenderness. She declined transfer to the emergency room. He states she prefers first to follow-up with her primary care physician. I informed her that she needed a number of issues addressed including further evaluation of her pelvic pain as well as her elevated MCV. She was offered a pain medication as soon as she arrived here however she declined it until the end of her visit. - Differential Dx/Diagnosis Provider Diagnosis: Right adnexal tenderness, Elevated BP without diagnosis of hypertension, Smoking Discharge - Sign-Out/Discharge Documenting (check all that apply): Patient Departure All imaging exams completed and their final reports reviewed: No Studies - Discharge Plan Condition: Stable Disposition: HOME Patient Education Materials: Ovarian Cyst (ED) Forms: *Work Release Referrals: Celeste Lange NP [Primary Care Provider] - As Soon As Possible Additional Instructions: I suspect you have an ovarian cyst GO TO THE ER FOR NEW OR WORSENING SYMPTOMS at your ER visit you had a markedly elevated MCV this need investigation as well so does your elevated BP - Billing Disposition and Condition Condition: STABLE Disposition: Home
[2018-09-07] MEDS ORDERED: Ketorolac INJ* 30 MG/ML 1 ML VIAL IM ONE (12:17)
== END 2018-09-07 12:27 | disposition home or self-care (01) ==
LOC: UCCORT 09:50
DX: R19.7 Diarrhea, unspecified (principal); R03.0 Elevated blood-pressure reading, without diagnosis of hypertension; F17.210 Nicotine dependence, cigarettes, uncomplicated; R10.31 Right lower quadrant pain
CPT/HCPCS: 81003; 84702; 96372; 99212; G0463; J1885

== ENCOUNTER 2018-11-27 10:31 | Emergency (ER) | payer OTHER ==
[2018-11-27 12:21] VITALS: BP 154/93
--- NOTE | 2018-11-27 12:46 | UC ---
Throat Pain/Nasal Omari HPI - HPI Summary HPI Summary: 43 y/o female presents to the urgent care c/o "I have my throat is very sore and it hurts to swallow ... every time I swallow it feels like my [right] ear is going to explode." Right ear pain aggrevated by swallowing, nasal discharge, constant sore throat aggrevated by swallowing, "I might have a cough ... nothin' unusual", chills, and tired for one day. No known fever. - History of Current Complaint Chief Complaint: UCGeneralIllness Stated Complaint: SORE THROAT,EARS Time Seen by Provider: 11/27/18 12:44 Hx Obtained From: Patient Hx Last Menstrual Period: 09/04/18 Pain Intensity: 9 - Allergies/Home Medications Allergies/Adverse Reactions: Allergies Allergy/AdvReac Type Severity Reaction Status Date / Time No Known Allergies Allergy Verified 11/27/18 12:18 PMH/Surg Hx/FS Hx/Imm Hx Other History Of: Negative For: Anticoagulant Therapy - Surgical History Surgical History: Yes Surgery Procedure, Year, and Place: LEEP procedure 2016 - Family History Known Family History: Negative: Cardiac Disease, Hypertension, Diabetes - Social History Alcohol Use: Daily Substance Use Type: None Smoking Status (MU): Heavy Every Day Tobacco Smoker Type: Cigarettes Amount Used/How Often: ~1/2 PPD Length of Time of Smoking/Using Tobacco: On and Off Since Age 17 Have You Smoked in the Last Year: Yes Household Exposure Type: Cigarettes - Immunization History Most Recent Influenza Vaccination: Never Most Recent Tetanus Shot: Unknown Most Recent Pneumonia Vaccination: Never Vaccination Up to Date: Yes Physical Exam Vital Signs: Initial Vital Signs Temp 98.2 F 11/27/18 12:14 Pulse 72 11/27/18 12:14 Resp 16 11/27/18 12:14 BP 154/93 11/27/18 12:14 Pulse Ox 100 11/27/18 12:14 Throat Pain/Nasal Course/Dx - Differential Dx/Diagnosis Differential Diagnosis/HQI/PQRI: Otitis Media, Pharyngitis, Sinusitis, URI, Other - otitis externa Provider Diagnosis: Right otitis externa, Pharyngitis, Elevated BP without diagnosis of hypertension Discharge - Sign-Out/Discharge Documenting (check all that apply): Patient Departure - d/C home All imaging exams completed and their final reports reviewed: No Studies - Discharge Plan Condition: Stable Disposition: HOME Prescriptions: Ibuprofen TAB* [Motrin TAB* 600 MG] 600 mg PO Q6H PRN #30 tab PRN Reason: otalgia Neomyc/Polym/HC 1% OTIC SUSP* [Cortisporin Otic Susp 1%*] 4 drop RIGHT EAR TID # 1 btl Patient Education Materials: Pharyngitis (ED), Otitis Externa (ED) Forms: *Work Release Referrals: [facility] [place] [facility] [Outside] - 2 Days Additional Instructions: 1-Please apply otic antibiotic on your Rt ear as directed. 2-Take ibuprofen PO after meals for ear pain and sore throat. Increae hydration , rest, avoid strenuous exercise 3-If symptoms do not improve or worsen please f/u with your PCP in 2-3 days for further evaluation and treatment. 4- Your BP is elevated today. please decrease salt in your diet, monitor BP and if it continues to be elevated please f/u with your PCP for further management. - Billing Disposition and Condition Condition: STABLE Disposition: Home
== END 2018-11-27 13:24 | disposition home or self-care (01) ==
LOC: UCCORT 10:31
DX: H60.91 Unspecified otitis externa, right ear (principal); J02.9 Acute pharyngitis, unspecified; R03.0 Elevated blood-pressure reading, without diagnosis of hypertension; F17.210 Nicotine dependence, cigarettes, uncomplicated
CPT/HCPCS: 87651; 99212; G0463

== ENCOUNTER 2018-12-22 17:00 | Emergency (ER) | payer OTHER ==
[2018-12-22 17:47] VITALS: BP 151/97
--- NOTE | 2018-12-22 18:08 | UC ---
Headache HPI - HPI Summary HPI Summary: pt is c/o a headache to her forehead and around her eyes. it was sudden in onset last pm while she was adjusting her thermostat. it is a throbbing sensation. no associated injury, n/v, photosensitivity or focal deficits. no fever or neck pain. no hx migraines and no FMH aneurysm. no self tx. she denies similar headaches. not really sure if this is her worst headache. - History Of Current Complaint Chief Complaint: UCGeneralIllness Stated Complaint: HEADACHE Time Seen by Provider: 12/22/18 17:57 Hx Obtained From: Patient Hx Last Menstrual Period: 11/04/18 Pain Intensity: 9 Timing: Constant Aggravating Factor(s): Nothing Allevating Factor(s): Nothing Associated Signs And Symptoms: Negative: Dizziness, Seizure, Nausea, Vomiting, Fever, Neck Pain, Neck Stiffness, Decreased LOC, Visual Changes - Risk Factors Meningitis Risk Factors: Negative SDH Risk Factors: Negative - Allergies/Home Medications Allergies/Adverse Reactions: Allergies Allergy/AdvReac Type Severity Reaction Status Date / Time No Known Allergies Allergy Verified 12/22/18 17:42 PMH/Surg Hx/FS Hx/Imm Hx Cardiovascular History: Hypertension - pt opting not to tx Other History Of: Negative For: Anticoagulant Therapy - Surgical History Surgical History: Yes Surgery Procedure, Year, and Place: LEEP procedure 2016 - Family History Known Family History: Positive: None - Pt denies FMHX Negative: Cardiac Disease, Hypertension, Diabetes - Social History Occupation: Employed Full-time Alcohol Use: Daily Alcohol Amount: 5-6 DRINKS/NIGHT Substance Use Type: None Smoking Status (MU): Heavy Every Day Tobacco Smoker Type: Cigarettes Amount Used/How Often: ~1/2 PPD Length of Time of Smoking/Using Tobacco: On and Off Since Age 17 Have You Smoked in the Last Year: Yes Household Exposure Type: Cigarettes - Immunization History Most Recent Influenza Vaccination: Never Most Recent Tetanus Shot: Unknown Most Recent Pneumonia Vaccination: Never Vaccination Up to Date: Yes Review of Systems All Other Systems Reviewed And Are Negative: Yes Constitutional: Negative: Fever, Chills Eyes: Negative: Blurred Vision, Diplopia, Photophobia Gastrointestinal: Negative: Vomiting, Nausea Neurological: Positive: Headache. Negative: Weakness, Paresthesia, Numbness Physical Exam Triage Information Reviewed: Yes Appearance: Well-Appearing Vital Signs: Initial Vital Signs Temp 97.8 F 12/22/18 17:42 Pulse 79 12/22/18 17:42 Resp 16 12/22/18 17:42 BP 151/97 12/22/18 17:42 Pulse Ox 97 12/22/18 17:42 Vital Signs Reviewed: Yes Eyes: Positive: Conjunctiva Clear, Other: - PERRL, EOMI ENT: Positive: Pharynx normal, TMs normal. Negative: Nasal congestion, Nasal drainage Neck: Positive: Supple, Nontender, No Lymphadenopathy. Negative: Nuchal Rigidity Respiratory: Positive: Lungs clear, Normal breath sounds, No respiratory distress Cardiovascular: Positive: RRR, No Murmur Abdomen Description: Positive: Nontender, No Organomegaly, Soft Bowel Sounds: Positive: Present Musculoskeletal: Positive: ROM Intact Neurological: Positive: Other: - A&Ox3. CN 2-12 intact. 5/5 strenght, 2+ reflexes x4, sensation intact x4. steady gait. performs rapid alternating moves with ease. Psychological: Positive: Age Appropriate Behavior Skin Exam: Normal Skin: Negative: Rashes Diagnostics - Radiology No standard instances Radiology Interpretation Completed By: Radiologist - CT BRAIN IMPRESSION: 1. There is mild mucosal thickening in the ethmoid and sphenoid sinus. No obvious air fluid levels and therefore findings are not specific for acute sinusitis. 2. No acute intracranial pathology. Re-Evaluation - Re-Evaluation First Eval Re-Evaluation Time: 19:26 Change: Improved - STARTING TO FEEL BETTER. Headache Course/Dx - Course Course Of Treatment: pt refusing CT for abrupt and possible worst plus different BUSCH because she didn' t want to wait but then changed her mind. - Differential Dx/Diagnosis Differential Diagnosis/HQI/PQRI: Other - NON TOXIC. NEURO EXAM IS REASSURING AND CT BRAIN IS UNREMARABLE. DO NOT FEEL HYPERTENSIVE URGENCY OR EMERGENCY. BUSCH RESOLVING WITH ZOFRAN AND TYLENOL. PT REQUSTING DISCHARGE TO HOME. Provider Diagnosis: Headache Discharge - Sign-Out/Discharge Documenting (check all that apply): Patient Departure All imaging exams completed and their final reports reviewed: Yes - Discharge Plan Condition: Stable Disposition: HOME Prescriptions: Ibuprofen TAB* [Motrin TAB* 600 MG] 600 mg PO Q8H PRN #15 tab PRN Reason: Headache Patient Education Materials: Acute Headache (ED) Forms: *Work Release Referrals: GLENYS Rehman [Medical Doctor] - As Soon As Possible - Billing Disposition and Condition Condition: STABLE Disposition: Home - Attestation Statements Provider Attestation: Per institutional requirements, I have reviewed the chart, however, I was not consulted specifically or made aware of this patient by the midlevel provider. I did not personally evaluate, interact with , or disposition this patient.
[2018-12-22] MEDS ORDERED: Ondansetron ODT TAB* 4 MG SL ONE (18:25)
[2018-12-22] MEDS ORDERED: Acetaminophen TAB* 325 MG PO ONE (18:25)
[2018-12-22] MEDS ORDERED: Ibuprofen ADULT LIQ* 600 MG/30 ML UDC PO ONE (19:28)
== END 2018-12-22 19:45 | disposition home or self-care (01) ==
LOC: UCCORT 17:00
DX: R51 Headache (principal); I10 Essential (primary) hypertension; F17.210 Nicotine dependence, cigarettes, uncomplicated
CPT/HCPCS: 70450; 99212; A9270-GY; G0463

== ENCOUNTER 2019-01-12 13:04 | Emergency (ER) | payer OTHER ==
[2019-01-12 13:25] VITALS: BP 144/99
[2019-01-12] MEDS ORDERED: Acetaminophen TAB* 325 MG PO ONE (13:33)
[2019-01-12] MEDS ORDERED: Ondansetron ODT TAB* 4 MG PO ONE (13:33)
[2019-01-12] MEDS ORDERED: Ibuprofen TAB* 600 MG PO ONE (13:34)
--- NOTE | 2019-01-12 13:41 | ED ---
Skin Complaint - HPI Summary HPI Summary: 43yr old female with the complaint of sunburn. Onset yesterday. She bent the day outside in the sun at the beach and in the water. She has sunburn on majority of her body not covered by bathing suite. She felt nauseated and tired today. She missed work, and would like a note for work. nO other complaints. - History of Current Complaint Chief Complaint: UCSkin Time Seen by Provider: 01/12/19 13:27 Stated Complaint: BODY ACHES,NAUSEA,SUNBURN ALL OVER Hx Last Menstrual Period: 12/22/18 Pain Intensity: 10 - Additional Pertinent History Primary Care Physician: ESTEFANIA - Allergy/Home Medications Allergies/Adverse Reactions: Allergies Allergy/AdvReac Type Severity Reaction Status Date / Time No Known Allergies Allergy Verified 01/12/19 13:14 Home Medications: Home Medications NK [No Home Medications Reported] 01/12/19 [History Confirmed 01/12/19] PMH/Surg Hx/FS Hx/Imm Hx Endocrine/Hematology History: Denies: Hx Anticoagulant Therapy, Hx Diabetes, Hx Thyroid Disease Cardiovascular History: Reports: Hx Hypertension Denies: Hx Pacemaker/ICD Respiratory History: Denies: Hx Asthma, Hx Chronic Obstructive Pulmonary Disease (COPD) GI History: Reports: Hx Ulcer History: Denies: Hx Renal Disease Sensory History: Reports: Hx Contacts or Glasses Opthamlomology History: Reports: Hx Contacts or Glasses Neurological History: Denies: Hx Dementia, Hx Seizures Psychiatric History: Denies: Hx Substance Abuse - Surgical History Surgery Procedure, Year, and Place: LEEP procedure 2016 Infectious Disease History: No Infectious Disease History: Denies: Hx Hepatitis, Hx Human Immunodeficiency Virus (HIV), Traveled Outside the [place] in Last 30 Days - Family History Known Family History: Positive: None - Pt denies FMHX Negative: Cardiac Disease, Hypertension, Diabetes - Social History Alcohol Use: Daily Alcohol Amount: 5-6 DRINKS/NIGHT Substance Use Type: Reports: None Smoking Status (MU): Heavy Every Day Tobacco Smoker Type: Cigarettes Amount Used/How Often: ~1/2 PPD Length of Time of Smoking/Using Tobacco: On and Off Since Age 17 Have You Smoked in the Last Year: Yes Review of Systems Constitutional: Negative Positive: Nausea Positive: Other - sunburn All Other Systems Reviewed And Are Negative: Yes Physical Exam Triage Information Reviewed: Yes Vital Signs On Initial Exam: Initial Vitals Temp Pulse Resp BP Pulse Ox 98.1 F 89 18 144/99 100 01/12/19 13:15 01/12/19 13:15 01/12/19 13:15 01/12/19 13:15 01/12/19 13:15 Vital Signs Reviewed: Yes Appearance: Positive: Well-Appearing, No Pain Distress Skin: Positive: Other - extensive first degree sunburn on majority of body without evidence of blistering, and areas spared are where had swimsuite on. Head/Face: Positive: Normal Head/Face Inspection Eyes: Positive: EOMI Neck: Positive: Nontender Respiratory/Lung Sounds: Positive: Clear to Auscultation, Breath Sounds Present Cardiovascular: Positive: RRR. Negative: Murmur Abdomen Description: Negative: Distended Musculoskeletal: Positive: Strength/ROM Intact Neurological: Positive: Sensory/Motor Intact, Alert, Oriented to Person Place, Time, CN Intact II-III, Normal Gait, Speech Normal Psychiatric: Positive: Normal Diagnostics - Vital Signs Vital Signs Temp Pulse Resp BP Pulse Ox 01/12/19 13:15 98.1 F 89 18 144/99 100 - Laboratory Lab Statement: Any lab studies that have been ordered have been reviewed, and results considered in the medical decision making process. Course/Dx - Course Course Of Treatment: 43 yr old with sunburn. DC home in good condition. - Diagnoses Provider Diagnoses: Sunburn Discharge - Sign-Out/Discharge Documenting (check all that apply): Patient Departure All imaging exams completed and their final reports reviewed: No Studies - Discharge Plan Condition: Good Disposition: HOME Patient Education Materials: Sunburn (ED), Skin Cancer Prevention (ED), Hypertension (ED) Forms: *Work Release Referrals: No Primary Care Phys,NOPCP [Primary Care Provider] - [facility] [place] [facility] [place] [facility] [Outside] - Billing Disposition and Condition Condition: GOOD Disposition: Home
== END 2019-01-12 13:48 | disposition home or self-care (01) ==
LOC: UCCORT 13:04
DX: L55.9 Sunburn, unspecified (principal); F17.210 Nicotine dependence, cigarettes, uncomplicated
CPT/HCPCS: 99212; A9270-GY; G0463

== ENCOUNTER 2019-04-01 11:10 | Emergency (ER) | payer OTHER ==
--- OUTSIDE RECORDS SUMMARY | 2019-04-01 11:24 | XMS REPORT | Continuity of Care Document ---
:1975 External Reference #:[id number] Author Name Penelope Carlton PA Address [address] [place] [address] Care Team Providers Name Role Phone Hair Mensah MD - Care Team Information Tax Consultant [phone] Gastroenterology Penelope Carlton PA - Medical Care Team Information Tax Consultant [phone] Problems Active Problems Provider Date Peptic ulcer Froilan Krishna FNP Onset: 10/19/2016 Note: Document: 09/11/16 - Hospital Discharge Summary Document: 09/14/16 - Hospital Discharge Summary Benign essential hypertension Penelope Carlton PA Onset: 10/08/2017 Social History Type Date Description Comments Sex Unknown Tobacco Use Start: Unknown current cigarette smoker Smoking Status Reviewed: 02/25/19 current cigarette smoker ETOH Use Drinks Alcoholic Beverages Occasionally Tobacco Use Start: Unknown Light tobacco smoker (10 or fewer cigarettes/day) Allergies, Adverse Reactions, Alerts Description No Known Drug Allergies Medications Active Medications SIG Qnty Indications Ordering Date Provider Calcium 600 1 by mouth every 30tabs Z30.8 Toño, 600mg Tablets day MD Wanda 9 Escitalopram Oxalate 1/2 by mouth daily 30tabs F41.9 Liset Sanders, 10mg during first week, M.D. 8 Tablets then increase to 1 by mouth every day Medroxyprogesterone 1 milliliters 1ml Z30.09 Toño, Acetate intramuscular every MD Wanda 8 150mg/ml Suspension 3 months Hydroxyzine HCL Germán, 25mg Tablets Siena Ayoub MD 0 Ibuprofen take 1 tablet by Unknown 600mg Tablets mouth every 8 hours 0 if needed for headache Medications Administered in Office Medication SIG Qnty Indications Ordering Provider Date Depomedroxyporgesterone 150MG Penelope Carlton PA 02/25/2019 Injection Depomedroxyporgesterone 150MG Family Nurse 03/10/2018 Injection Depomedroxyporgesterone 150MG Family Nurse 12/02/2017 Injection Immunizations Description No Information Available Vital Signs Date Vital Result Comment 02/25/2019 4:32pm BP Systolic 162 mmHg BP Diastolic 100 mmHg Body Temperature 98.0 F Heart Rate 92 /min Respiratory Rate 18 /min Height 63.5 inches 5'3.50" Weight 130.38 lb BMI (Body Mass Index) 22.7 kg/m2 BSA (Body Surface Area) 1.62 m2 [place] body weight in kilograms 53 kg O2 % BldC Oximetry 97 % Ra 02/10/2019 4:04pm BP Systolic 172 mmHg BP Diastolic 100 mmHg Body Temperature 98.4 F Heart Rate 83 /min Respiratory Rate 16 /min Height 63.5 inches 5'3.50" Weight 132.25 lb BMI (Body Mass Index) 23.1 kg/m2 BSA (Body Surface Area) 1.63 m2 [place] body weight in kilograms 53 kg O2 % BldC Oximetry 97 % Results Test Date Facility Test Result H/L Range Note Urine Dipstick 02/25/2019 [facility] Inhouse Ua Color yellow Yellow Ua Clarity clear Clear Ua Leuko - Negative Ua Nitrite - Negative Ua Urobilinogen 0.2 0.2 - 1.0 E.U./dL Ua Protein - Negative Ua PH 6.0 Low 6.5-7.5 Ua Blood - Negative Ua Specific [place] 1.010 1.010-1.030 Ua Ketones - Negative Ua Bilirubin - Negative Ua Glucose - Negative Laboratory test 02/25[facility]2019 [facility] Negative finding Urine HCG 02/10/2019 [facility] Misc neg (Qualitative) Urine Dipstick 02/10/2019 [facility] Ua Color sindi Yellow Ua Clarity clear Clear Ua Leuko neg Negative Ua Nitrite neg Negative Ua Urobilinogen 3.5 High 0.2 - 1.0 E.U./dL Ua Protein pos Negative Ua PH 6.0 Low 6.5-7.5 Ua Blood neg Negative Ua Specific [place] 1.025 1.010-1.030 Ua Ketones neg Negative Ua Bilirubin neg Negative Ua Glucose neg Negative Urine Dipstick 01/16/2019 [facility] Inhouse Ua Color yellow Yellow Ua Clarity clear Clear Ua Leuko neg Negative Ua Nitrite neg Negative Ua Urobilinogen 3.5 High 0.2 - 1.0 E.U./dL Ua Protein pos Negative Ua PH 6.0 Low 6.5-7.5 Ua Blood pos Negative Ua Specific [place] 1.015 1.010-1.030 Ua Ketones neg Negative Ua Bilirubin neg Negative Ua Glucose neg Negative Laboratory test 09/07/2018 [facility] Laboratory Poc , Negative Negative 1 finding [phone] Urine Poc Urinalysis 09/07/2018 [facility] Poc Glucose, Negative Negative [phone] Urine Poc Bilirubin, Urine Negative Negative Poc Ketone, Urine Negative Negative Poc Specific [place], Urine 1.015 Normal 1.010-1.030 Poc Blood, Urine Trace-intact Abnormal Negative Poc pH, Urine 8.5 Normal 5-9 Poc Protein, Urine Trace Abnormal Negative Poc Urobilinogen, Urine 0.2 Negative Poc Nitrite, Urine Negative Negative Poc Leukocytes, Urine Negative Negative Poc Color, Urine Yellow Poc Clarity, Urine Clear 2 1 Ballet Master/Mistress: [id number] Test Disclaimer: Positive bacteria, red blood cells, white blood cells, early , low specific gravity, and other factors may cause false positive or negative results. It is recommended to retest unexpected results within 24 to 72 hours with a serum test when applicable. If is still suspected, please repeat test after 48 to 72 hours. 2 Ballet Master/Mistress: [id number] Procedures Description No Information Available Medical Devices Description No Information Available Encounters Type Date Location Provider Dx Diagnosis Office Visit 02/10/2019 Family [facility] Penelope Carlton, Z30.8 Encounter for other 4:00p Nhan MARTINEZ contraceptive management R03.0 Elevated blood-pressure reading, w/o diagnosis of htn Office Visit 01/16/2019 Family Krishna, N92.5 Other specified 11:00a Medicine GINA Hoyt irregular RD menstruation Assessments Date Code Description Provider 02/25/2019 Z00.00 Encounter for general adult medical Penelope Carlton PA examination without abnormal findings 02/25/2019 Z00.01 Encounter for general adult medical Penelope Carlton PA examination with abnormal findings 02/10/2019 Z30.8 Encounter for other contraceptive Penelope Carlton PA management 02/10/2019 R03.0 Elevated blood-pressure reading, without Penelope Carlton PA diagnosis of hypertension 01/16/2019 N92.5 Other specified irregular menstruation Froilan Krishna FNP Plan of Treatment Future Appointment(s):05/13/2019 4:15 pm - Family Nurse at [facility] RD Functional Status Functional Condition Comment Date Status Independent with all ADL's Active Mental Status Description No Information Available Referrals Description No Information Available
--- OUTSIDE RECORDS SUMMARY | 2019-04-01 11:24 | XMS REPORT | Continuity of Care Document ---
:1975 External Reference #:[id number] Author Name Penelope Carlton PA Address [address] [place] [address] Care Team Providers Name Role Phone Hair Mensah MD - Care Team Information Sweater Operator [phone] Gastroenterology Penelope Carlton PA - Medical Care Team Information Sweater Operator [phone] Problems Active Problems Provider Date Peptic ulcer Froilan Krishna FNP Onset: 10/19/2016 Note: Document: 09/11/16 - Hospital Discharge Summary Document: 09/14/16 - Hospital Discharge Summary Benign essential hypertension Penelope Carlton PA Onset: 10/08/2017 Social History Type Date Description Comments Sex Unknown Tobacco Use Start: Unknown current cigarette smoker Smoking Status Reviewed: 02/10/19 current cigarette smoker ETOH Use Drinks Alcoholic [...] Qnty Indications Ordering Provider Date Depomedroxyporgesterone 150MG Family Nurse 03/10/2018 Injection Depomedroxyporgesterone 150MG Family Nurse 12/02/2017 Injection Immunizations Description No Information Available Vital Signs Date Vital Result Comment 02/10/2019 4:04pm BP Systolic 172 mmHg BP Diastolic 100 mmHg Body Temperature 98.4 F Heart Rate 83 /min Respiratory Rate 16 /min Height 63.5 inches 5'3.50" Weight 132.25 lb BMI (Body Mass Index) 23.1 kg/m2 BSA (Body Surface Area) 1.63 m2 [place] body weight in kilograms 53 kg O2 % BldC Oximetry 97 % 01/16/2019 11:00am BP Systolic 122 mmHg BP Diastolic 80 mmHg Body Temperature 97.7 F Heart Rate 78 /min Respiratory Rate 19 /min Height 63 inches 5'3" Weight 125.00 lb BMI (Body Mass Index) 22.1 kg/m2 BSA (Body Surface Area) 1.58 m2 [place] body weight in kilograms 52 kg O2 % BldC Oximetry 99 % Results Test Date Facility Test Result H/L Range Note Urine HCG (Qualitative) 02/10/2019 [facility] Inhouse Misc neg Urine Dipstick 02/10/2019 [facility] Inhouse Ua Color sindi Yellow Ua Clarity clear Clear Ua Leuko neg Negative Ua Nitrite neg Negative Ua Urobilinogen 3.5 High 0.2 - 1.0 E.U./dL Ua Protein pos Negative Ua PH 6.0 Low 6.5-7.5 Ua Blood neg Negative Ua Specific [place] 1.025 1.010-1.030 Ua Ketones neg Negative Ua Bilirubin neg Negative Ua Glucose neg Negative Urine Dipstick 01/16/2019 [facility] Inhouse Ua Color yellow Yellow Ua Clarity clear Clear Ua Leuko neg Negative Ua Nitrite neg Negative Ua Urobilinogen 3.5 High 0.2 - 1.0 E.U./dL Ua Protein pos Negative Ua PH 6.0 Low 6.5-7.5 Ua Blood pos Negative Ua Specific [place] 1.015 1.010-1.030 Ua Ketones neg Negative Ua Bilirubin neg Negative Ua Glucose neg Negative Laboratory test 09/07/2018 [facility] Laboratory Poc , Negative Negative 1 finding [phone] Urine Poc Urinalysis 09/07/2018 [facility] Laboratory Poc Glucose, Negative Negative [phone] Urine Poc Bilirubin, Urine Negative Negative Poc Ketone, Urine Negative Negative Poc Specific [place], Urine 1.015 Normal 1.010-1.030 Poc Blood, Urine Trace-intact Abnormal Negative Poc pH, Urine 8.5 Normal 5-9 Poc Protein, Urine Trace Abnormal Negative Poc Urobilinogen, Urine 0.2 Negative Poc Nitrite, Urine Negative Negative Poc Leukocytes, Urine Negative Negative Poc Color, Urine Yellow Poc Clarity, Urine Clear 2 1 Gas Torch Solderer: [id number] Test Disclaimer: Positive bacteria, red blood cells, white blood cells, early , low specific gravity, and other factors may cause false positive or negative results. It is recommended to retest unexpected results within 24 to 72 hours with a serum test when applicable. If is still suspected, please repeat test after 48 to 72 hours. 2 Gas Torch Solderer: [id number] Procedures Description No Information Available Medical Devices Description No Information Available Encounters Type Date Location Provider Dx Diagnosis Office Visit 01/16/2019 [facility] Celi Krishna92.5 Other specified 11:00a [facility] connie Mcgovern menstruation Assessments Date Code Description Provider 02/10/2019 Z30.8 Encounter for other contraceptive Penelope Carlton PA management 01/16/2019 N92.5 Other specified irregular menstruation Froilan Krishna FNP Plan of Treatment Future Appointment(s):02/25/2019 4:30 pm - Penelope Carlton [facility] at [facility]01/16/2019 - Froilan Krishna FNPN92.5 Other specified irregular menstruationComments:You have not gone through menopause - you weren' t getting periods due to having been on Depo. It can take 6-12 months after your last depo shot for your periods to resume and it seems you are now getting your period. This means you CAN get . Discussed various control options day pills, 84 day, patches, IUD, Nexplanon and condoms and emergency contraception (Plan B).Follow up:with PCP for discussion of blood pressure, anxiety and control. Also overdue for CPE/ WWEAllFollow up:sign records release from [place] [facility] was seen a few months ago Functional Status Functional Condition Comment Date Status Independent with all ADL's Active Mental Status Description No Information Available Referrals Description No Information Available
--- OUTSIDE RECORDS SUMMARY | 2019-04-01 11:24 | XMS REPORT | Continuity of Care Document ---
:1975 External Reference #:[id number] Author Name Froilan Krishna FNP Address [address] [place] [address] Care Team Providers Name Role Phone Hair Mensah MD - Care Team Information Project Coach [phone] Gastroenterology Penelope Carlton PA - Medical Care Team Information Project Coach [phone] Problems Active Problems Provider Date Peptic ulcer [...] kg/m2 BSA (Body Surface Area) 1.63 m2 [place] body weight in kilograms 53 kg O2 % BldC Oximetry 97 % 01/16/2019 11:00am BP Systolic 122 mmHg BP Diastolic 80 mmHg Body Temperature 97.7 F Heart Rate 78 /min Respiratory Rate 19 /min Height 63 inches 5'3" Weight 125.00 lb BMI (Body Mass Index) 22.1 kg/m2 BSA (Body Surface Area) 1.58 m2 [place] body weight in kilograms 52 kg O2 % BldC Oximetry 99 % Results Test Date Facility Test Result H/L Range Note Urine HCG (Qualitative) 02/10/2019 [facility] Inhouse Misc neg Urine Dipstick 02/10/2019 [facility] Inhouse Ua Color sindi Yellow Ua Clarity clear Clear Ua Leuko neg Negative Ua Nitrite neg Negative Ua Urobilinogen 3.5 High 0.2 - 1.0 E.U./dL Ua Protein pos Negative Ua PH 6.0 Low 6.5-7.5 Ua Blood neg Negative Ua Specific [place] 1.025 1.010-1.030 Ua Ketones neg Negative Ua Bilirubin neg Negative Ua Glucose neg Negative Urine Dipstick 01/16/2019 [facility] Inhouse Ua Color yellow Yellow Ua Clarity clear Clear Ua Leuko neg Negative Ua Nitrite neg Negative Ua Urobilinogen 3.5 High 0.2 - 1.0 E.U./dL Ua Protein pos Negative Ua PH 6.0 Low 6.5-7.5 Ua Blood pos Negative Ua Specific [place] 1.015 1.010-1.030 Ua Ketones neg Negative Ua Bilirubin neg Negative Ua Glucose neg Negative [facility] P[facility] , Negative Negative 1 finding [phone] Urine Poc Urinalysis 09/07/[facility] Poc Glucose, Negative Negative [phone] Urine Poc Bilirubin, Urine Negative Negative Poc Ketone, Urine Negative Negative Poc Specific [place], Urine 1.015 Normal 1.010-1.030 Poc Blood, Urine Trace-intact Abnormal Negative Poc pH, Urine 8.5 Normal 5-9 Poc Protein, Urine Trace Abnormal Negative Poc Urobilinogen, Urine 0.2 Negative Poc Nitrite, Urine Negative Negative Poc Leukocytes, Urine Negative Negative Poc Color, Urine Yellow Poc Clarity, Urine Clear 2 1 Turkish Line Attendant: [id number] Test Disclaimer: Positive bacteria, red blood cells, white blood cells, early , low specific gravity, and other factors may cause false positive or negative results. It is recommended to retest unexpected results within 24 to 72 hours with a serum test when applicable. If is still suspected, please repeat test after 48 to 72 hours. 2 Turkish Line Attendant: [id number] Procedures Description No Information Available Medical Devices Description No Information Available Encounters Type Date Location Provider Dx Diagnosis Office Visit 02/10/2019 [facility] Penelope Carlton, Z30.8 Encounter for other 4:00p Nhan MARTINEZ contraceptive management R03.0 Elevated blood-pressure reading, w/o diagnosis of htn Office Visit 01/16/2019 Celi Marlow92.5 Other specified 11:00a [facility] GINA Hoyt irregular RD menstruation Assessments Date Code Description Provider 02/10/2019 Z30.8 Encounter for other contraceptive Penelope Carlton PA management 02/10/2019 R03.0 Elevated blood-pressure reading, without Penelope Carlton PA diagnosis of hypertension 01/16/2019 N92.5 Other specified irregular menstruation Froilan Krishna FNP Plan of Treatment Future Appointment(s):02/25/2019 4:30 pm - Penelope Carlton PA at [facility] Functional Status Functional Condition Comment Date Status Independent with all ADL's Active Mental Status Description No Information Available Referrals Description No Information Available
[2019-04-01 11:31] VITALS: BP 139/90
[2019-04-01] MEDS ORDERED: Acetaminophen TAB* 325 MG PO ONE (11:35)
--- NOTE | 2019-04-01 11:45 | UC ---
Hand/Wrist HPI - HPI Summary HPI Summary: 43-year-old female comes in with a chief complaint of left wrist and hand pain after an injury this morning while at work. 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 Should pain right away. She has pain with range of motion of the wrist and of the thumb. She does report some numbness in the thumb. There is some ecchymosis on the base of left thumb and radial aspect of the wrist but, the patient's not sure if it's from this injury or not. Some decreased thumb extension compared to the right. - History Of Current Complaint Chief Complaint: UCUpperExtremity Stated Complaint: LEFT HAND INJURY (WC) Time Seen by Provider: 04/01/19 11:33 Hx Last Menstrual Period: on DEPO INJ FEB 2019 Pain Intensity: 8 - Allergies/Home Medications Allergies/Adverse Reactions: Allergies Allergy/AdvReac Type Severity Reaction Status Date / Time No Known Allergies Allergy Verified 04/01/19 11:24 PMH/Surg Hx/FS Hx/Imm Hx Previously Healthy: Yes Other History Of: Negative For: Anticoagulant Therapy - Surgical History Surgical History: Yes Surgery Procedure, Year, and Place: LEEP procedure 2016 - Family History Known Family History: Positive: None - Pt denies FMHX Negative: Cardiac Disease, Hypertension, Diabetes - Social History Alcohol Use: Daily Alcohol Amount: 6 wine/night Substance Use Type: None Smoking Status (MU): Heavy Every Day Tobacco Smoker Type: Cigarettes Amount Used/How Often: ~1/2 PPD Length of Time of Smoking/Using Tobacco: On and Off Since Age 17 Have You Smoked in the Last Year: Yes Household Exposure Type: Cigarettes - Immunization History Most Recent Influenza Vaccination: Never Most Recent Tetanus Shot: Unknown Most Recent Pneumonia Vaccination: Never Vaccination Up to Date: Yes Review of Systems All Other Systems Reviewed And Are Negative: Yes Constitutional: Positive: Negative Skin: Positive: Other - SEEHPI Eyes: Positive: Negative ENT: Positive: Negative Respiratory: Positive: Negative Cardiovascular: Positive: Negative Gastrointestinal: Positive: Negative Motor: Positive: Other - SEE HPI Neurovascular: Positive: Negative Musculoskeletal: Positive: Other: - SEE HPI Neurological: Positive: Other - SEE HPI Psychological: Positive: Negative Is Patient Immunocompromised?: No Physical Exam Triage Information Reviewed: Yes Appearance: Well-Appearing, Well-Nourished, Pain Distress - MILD WITH ROM LEFT THUMB AND WRIST Vital Signs: Initial Vital Signs Temp 98.6 F 04/01/19 11:24 Pulse 72 04/01/19 11:24 Resp 16 04/01/19 11:24 BP 139/90 04/01/19 11:24 Pulse Ox 100 04/01/19 11:24 Vital Signs Reviewed: Yes Eye Exam: Normal Eyes: Positive: Conjunctiva Clear Neck: Positive: Supple Respiratory: Positive: No respiratory distress Musculoskeletal: Positive: Other: - The left wrist is tender in the distal radius and through the radial aspect into the base of the right thumb and into the PIP of the right thumb. Normal capillary refill. Normal sensation. Extension is slightly limited on the left thumb and comparison of the right thumb. Strength is 5 out of 5. Neurological: Positive: Alert Psychological: Positive: Age Appropriate Behavior Skin: Positive: Other - There are 2 areas of ecchymosis on the left wrist base of the thumb area. Hand/Wrist Course/Dx - Course Course Of Treatment: Poker In: Vadim Linn ([id number]) Hop Strainer: MARIO (MARIO) Report Date: 04/01/2019 11:34:00 Report Status: Final Start of Report Content Patient Name: GRETA BUENO Medical Record#: [id number] Ordering Physician: Carlos Eduardo Moya MD Acct.#: [id number] : 12/1974 Age: 43 Sex: F Location: [facility] Exam Date: 04/01/19 113 ADM Status: REG ER Order Information: WRIST LEFT 3+ VWS Accession Number: [id number] CPT: 48565 Clinical history: Trauma to the left wrist. COMPARISON: Same day left hand radiograph. TECHNIQUE: 3 radiographic views of the left wrist were obtained. FINDINGS: The soft tissues are unremarkable. The bone mineralization is within normal limits. No fracture is identified. Anatomic alignment is maintained. The joint spaces are preserved. IMPRESSION: No fracture or traumatic malalignment of the left wrist <Electronically signed by Vadim Linn MD in OV> 04/01/19 120 Dictated By: Vadim Linn MD Dictated Date/Time: 04/01/191202 Transcribed Date/Time: 04/01/191202 Copy to: CC:No Primary Care Phys, NOPCP ; Carlos Eduardo Moya MD Imaging - [facility] - [place] [facility] [address] [place] [id number] [address] [address] ph [phone]) ph [phone]) ([phone]) ==== End of Report Content Poker In: Vadim Linn, ([id number]) Hop Strainer: MARIO (GILANCE) Report Date: 04/01/2019 11:34:00 Report Status: Final Start of Report Content Patient Name: GRETA BUENO Medical Record#: [id number] Ordering Physician: Carlos Eduardo Moya MD Acct.#: [id number] : 12/1974 Age: 43 Sex: F Location: [facility] Exam Date: 04/01/19 1134 ADM Status: REG ER Order Information: WRIST LEFT 3+ VWS Accession Number: [id number] CPT: 68942 Clinical history: Trauma to the left wrist. COMPARISON: Same day left hand radiograph. TECHNIQUE: 3 radiographic views of the left wrist were obtained. FINDINGS: The soft tissues are unremarkable. The bone mineralization is within normal limits. No fracture is identified. Anatomic alignment is maintained. The joint spaces are preserved. IMPRESSION: No fracture or traumatic malalignment of the left wrist <Electronically signed by Vadim Linn MD in OV> 04/01/19 1204 Dictated By: Vadim Linn MD Dictated Date/Time: 04/01/19 120 Transcribed Date/Time: 04/01/19 120 Copy to: CC:No Primary Care Phys, NOPCP ; Carlos Eduardo Moya MD Imaging - [facility] Urgent [facility] [address] [place] [address] ph [phone]) ph [phone]) ph ([phone]) ==== End of Report Content I discussed the x-rays with the patient. No fracture seen. Patient was placed a thumb spica splint by nursing patient neurovascular intact after placement of thumb spica splint. Plan will be eyes anti-inflammatories immobilization as needed. I wrote for the patient to be out of work today to return tomorrow. If the patient does improve and work is not causing further problems with get sick with that plan however if her thumb is not improving or works making it worse patient is to follow up either with occupational medicine or sports medicine. - Differential Dx/Diagnosis Provider Diagnosis: Left wrist sprain, Left thumb sprain Discharge ED - Sign-Out/Discharge Documenting (check all that apply): Patient Departure All imaging exams completed and their final reports reviewed: Yes - Discharge Plan Condition: Stable Disposition: HOME Patient Education Materials: Finger Sprain (ED), Wrist Sprain (ED) Forms: *Work Release Referrals: [facility] [Provider Group] Lionel Byers MD [Medical Doctor] - Additional Instructions: FOLLOW UP WITH DR BYERS, OCCUPATIONAL MEDICINE, OR SPORTS MEDICINE IF NOT COMPLETELY IMPROVED. GET REEVALUATED SOONER IF NOT IMPROVING OR YOUR CONDITION WORSENS OR ANY QUESTIONS OR CONCERNS - Billing Disposition and Condition Condition: STABLE Disposition: Home
== END 2019-04-01 12:32 | disposition home or self-care (01) ==
LOC: UCCORT 11:10
DX: S63.502A Unspecified sprain of left wrist, initial encounter (principal); S63.602A Unspecified sprain of left thumb, initial encounter; W31.9XXA Contact with unspecified machinery, initial encounter; Y92.89 Other specified places as the place of occurrence of the external cause; Y99.0 Civilian activity done for income or pay; F17.210 Nicotine dependence, cigarettes, uncomplicated
CPT/HCPCS: 99213; A9270-GY; G0463